=== PATIENT | female | born 1945 | race African-American/Black ===

== ENCOUNTER 2020-10-18 11:41 | Inpatient (IN) | payer MEDICARE ==
[~2020-10-18] VITALS: Ht 167.6 cm; Wt 63.7 kg
[2020-10-18] VITALS (7 sets, daily range): BP systolic 102–124; BP diastolic 52–63
[2020-10-18] MEDS ORDERED: IV NORMAL SALINE 1000ML BAG 1,000 ML IV ONE (12:00)
--- NOTE | 2020-10-18 12:07 | PHYS DOC ---
General Adult EDM: Chief Complaint: OTHER COMPLAINTS HPI: HPI: 75-year-old female past medical history of breast cancer with bilateral mastectomy in remission since 2018 (no chem/rads, on prolia), presents to the ED brought in by EMS from Dr. Brady's office with concern for hypotension and irregular heart rate, unable to obtain EKG. Patient with no prior history of atrial fibrillation and has no active chest pain, palpitations, dizziness, weakness, lightheadedness or feeling as if she is going to faint. Patient reports she presented to Dr. Brady's office with complaints of diffuse upper and lower back "cramps," only relieved with certain positions. States she took 1 tablet of Tylenol 650 mg with no relief. States her cramps have been constant but intermittent for the past month. Denies any recent illness/uri. No history of Covid or GI losses with vomiting or diarrhea. Reports chronic history of anemia but no history of blood transfusions. Is adamant against receiving any blood transfusions due to fear of getting Covid. Does have a history of iron infusions. Review of Systems: Review of Systems: Constitutional: Denies fever or chills. [] Eyes: Denies change in visual acuity. [] HENT: Denies nasal congestion or sore throat. [] Respiratory: Denies cough or shortness of breath. [] Cardiovascular: Denies chest pain or edema. [] GI: Denies abdominal pain, nausea, vomiting, bloody stools or diarrhea. [] : Denies dysuria or hematuria Musculoskeletal: Denies back pain or joint pain. [] Integument: Denies rash or diaphoresis Neurologic: Denies headache, focal weakness or sensory changes. [] Endocrine: Denies polyuria or polydipsia. [] Lymphatic: Denies swollen glands. [] Psychiatric: Denies depression or anxiety. [] Heart Score: Risk Factors: Risk Factors: DM, Current or recent (<one month) smoker, HTN, HLP, family history of CAD, obesity. Risk Scores: Score 0 - 3: 2.5% MACE over next 6 weeks - Discharge Home Score 4 - 6: 20.3% MACE over next 6 weeks - Admit for Clinical Observation Score 7 - 10: 72.7% MACE over next 6 weeks - Early Invasive Strategies Allergies: Allergies: Allergies Coded Allergies Type Severity Reaction Last Updated Verified No Known Drug Allergies 07/08/17 No Physical Exam: PE: Constitutional: Well developed, well nourished, no acute distress, non-toxic appearance. HENT: Normocephalic, atraumatic, Eyes: EOMI, conjunctiva normal, no discharge. Neck: Normal range of motion, supple, Cardiovascular: S1/2 present, irregular rhythm, 169/80s Lungs & Thorax: Speaking in full sentences, bilateral equal chest rise, no tachypnea or increased work of breathing Abdomen: soft, no tenderness, Skin: Warm, dry, no erythema, no rash. [] Back: cannot reproduce specific areas of muscle spasms, patient with no midline back pain or flank tenderness Extremities: No tenderness, no cyanosis, no edema Neurologic: Alert and oriented X 3, normal motor function, normal sensory function, no focal deficits noted. [] Psychologic: Affect normal, judgement normal, mood normal. [] EKG: EKG: Concern for atrial fibrillation RVR at 153 bpm, no axis deviation, unremarkable intervals, not appreciate any T wave inversions, no ST elevations or ST depressions-patient with no active chest pain/palpitations Repeat EKG sinus rhythm 86 bpm, left axis deviation, IL 200, no T wave inversions, no ST elevations or ST depressions Radiology/Procedures: Radiology/Procedures: Signed PATIENT: ANA ROCHA ACCOUNT: [id number] : 1945 LOCATION: ER AGE: 75 SEX: F EXAM STATUS: PRE ER ORD. PHYSICIAN: NAFISA LUNA DO REASON: muscle spasms PROCEDURE: PORTABLE CHEST 1V INDICATION: Reason: muscle spasms / Spl. Instructions: / History: COMPARISON: None. FINDINGS: Single view of chest obtained. Linear opacity at the right lower lung. Mild interstitial prominence. Cardiac mediastinal silhouette is upper limits of normal. Hypoexpanded exam. Degenerative changes shoulders. IMPRESSION: * Linear opacity right lower lung could be from scarring or atelectasis. * Mild interstitial prominence bilaterally. Causes such as mild pulmonary vascular congestion or interstitial infiltrate are within the differential. Electronically signed by: Garry Miles MD (10/18/2020 12:22 PM) [id number] DICTATED and SIGNED BY: GARRY MILES MD DATE: 10/18/20 [id number] 0 Course & Med Decision Making: Course & Med Decision Making Pertinent Labs and Imaging studies reviewed. (See chart for details) Concern for new onset proximal atrial fibrillation that resolved after 20 mg of diltiazem. Repeat EKG converted to sinus rhythm. Patient also with significant normocytic anemia, leukocytosis, and thrombocytosis-no prior labs for baseline comparison.. Patient refusing blood transfusion in ED. Is pending a repeat CBC and u/a to assess for infection. Patient very well-appearing with no nuchal mentioning of meningismus. X-ray with no infiltrate. I left a voicemail with Dr. RODGER Plascencia' nurse practitioner but have not heard back. Will admit for further medical management, accepted by Dr. Yeh. Hematology and cardiology consultations placed. Patient stable at time of admission and agrees with this plan. I have spoken with the patient and/or caregivers. I have explained the patient' s condition, diagnosis and treatment plan based on the information available to me at this time. I have answered the patient's and/or caregivers questions and answered any concerns. The patient and/or caregivers have as good an understanding of the patient's diagnosis, condition and treatment plan as can be expected at this point. The patient has been stabilized within the capability of the emergency department. The patient will be transported for further care and management or will be moved to an observation or inpatient service. I have communicated with the staff or medical practitioner taking over this patient's care. May Disclaimer: [place] Disclaimer: This electronic medical record was generated, in whole or in part, using a voice recognition dictation system. Departure Departure Impression: Primary Impression: Paroxysmal A-fib Additional Impressions: Normocytic anemia Thrombocytosis Leukocytosis Renal insufficiency Disposition: ADMITTED INPT THIS HOSP Admitting Physician: DEWAYNE (Dr. Yeh) Referrals: Umair BRADY MD (PCP) NAFISA LUNA DO Oct 18, 2020 12:07
[2020-10-18 12:13] LABS: BASO # 0.1 x10^3/uL (0.0-0.2); BASO % 0 % (0-3); EOS % 0 % (0-3); LYMPH # 0.9 x10^3/uL (1.0-4.8); LYMPH % 5 % (24-48); MEAN CORPUSCULAR HEMOGLOBIN 29 pg (25-35); MEAN CORPUSCULAR HGB CONC 33 g/dL (31-37); MEAN CORPUSCULAR VOLUME 87 fL (79-100); MONO # 1.4 x10^3/uL (0.0-1.1); MONO % 8 % (0-9); NEUT # 15.5 x10^3/uL (1.8-7.7); NEUT % 86 % (31-73); RED BLOOD COUNT 2.33 x10^6/uL (3.50-5.40); RED CELL DISTRIBUTION WIDTH 15.2 % (11.5-14.5); WHITE BLOOD COUNT 17.9 x10^3/uL (4.0-11.0)
[2020-10-18 12:21] LABS: HEMATOCRIT 20.2 % (36.0-47.0); HEMOGLOBIN 6.7 g/dL (12.0-15.5)
[2020-10-18 12:22] LABS: PLATELET COUNT 920 x10^3/uL (140-400)
[2020-10-18 12:24] LABS: CALCIUM 11.1 mg/dL (8.5-10.1); CREATININE 1.6 mg/dL (0.6-1.0); POTASSIUM 3.8 mmol/L (3.5-5.1)
--- NOTE | 2020-10-18 12:24 | RAD ---
INDICATION: Reason: muscle spasms / Spl. Instructions: / History: COMPARISON: None. FINDINGS: Single view of chest obtained. Linear opacity at the right lower lung. Mild interstitial prominence. Cardiac mediastinal silhouette is upper limits of normal. Hypoexpanded exam. Degenerative changes shoulders. IMPRESSION: * Linear opacity right lower lung could be from scarring or atelectasis. * Mild interstitial prominence bilaterally. Causes such as mild pulmonary vascular congestion or int erstitial infiltrate are within the differential. Electronically signed by: Garry Gayle MD (10/18/2020 12:22 PM) [id number]
[2020-10-18 12:33] LABS: ALBUMIN 2.1 g/dL (3.4-5.0); ALBUMIN/GLOBULIN RATIO 0.4 (1.0-1.7); MAGNESIUM 1.1 mg/dL (1.8-2.4); TOTAL BILIRUBIN 0.6 mg/dL (0.2-1.0)
[2020-10-18 13:00] LABS: % BANDS 8 % (0-9); % LYMPHS 4 % (24-48); % MONOS 8 % (0-10); % MYELOS 1 % (0-0); % SEGS 79 % (35-66)
[2020-10-18 13:01] LABS: ANISOCYTOSIS SLIGHT; PLT ESTIMATE INCREASED (ADEQUATE); POLYCHROMASIA SLIGHT; TOXIC GRANULATION SLIGHT
[2020-10-18] MEDS ORDERED: fentaNYL PF VIAL 100 MCG/2 ML VIAL IV PRN (14:00)
[2020-10-18] MEDS ORDERED: ONDANSETRON PF 4 MG/2 ML VIAL. IV PRN ×2 (14:00→14:45)
[2020-10-18 14:16] LABS: BASO # 0.1 x10^3/uL (0.0-0.2); BASO % 0 % (0-3); EOS % 0 % (0-3); LYMPH # 0.8 x10^3/uL (1.0-4.8); LYMPH % 5 % (24-48); MEAN CORPUSCULAR HEMOGLOBIN 28 pg (25-35); MEAN CORPUSCULAR HGB CONC 33 g/dL (31-37); MEAN CORPUSCULAR VOLUME 87 fL (79-100); MONO # 1.1 x10^3/uL (0.0-1.1); MONO % 7 % (0-9); NEUT # 14.2 x10^3/uL (1.8-7.7); NEUT % 88 % (31-73); PLATELET COUNT 759 x10^3/uL (140-400); RED CELL DISTRIBUTION WIDTH 15.4 % (11.5-14.5); WHITE BLOOD COUNT 16.1 x10^3/uL (4.0-11.0)
[2020-10-18 14:24] LABS: HEMATOCRIT 17.3 % (36.0-47.0); HEMOGLOBIN 5.7 g/dL (12.0-15.5)
--- NOTE | 2020-10-18 14:31 | PDOC1 ---
History and Physical Date of Admission Date of Admission DATE: 10/18/20 TIME: 14:29 Identification/Chief Complaint Chief Complaint DICTATED, SUPPLEMENT DATA Current Problem List Problem List Problems Medical Problems: (1) Leukocytosis Status: Acute (2) Normocytic anemia Status: Acute (3) Paroxysmal A-fib Status: Acute (4) Renal insufficiency Status: Acute (5) Thrombocytosis Status: Acute Current Medications Current Medications Current Medications Diltiazem HCl (Cardizem Iv Push) 20 mg 1X ONCE IVP Last administered on 10/18/20at 12:16; Start 10/18/20 at 12:15; Stop 10/18/20 at 12:16; Status DC Sodium Chloride 1,000 ml @ 1,000 mls/hr 1X ONCE IV Last administered on 10/18/20at 12:16; Start 10/18/20 at 12:00; Stop 10/18/20 at 12:59; Status DC Ondansetron HCl (Zofran) 4 mg PRN Q8HRS PRN IV NAUSEA/VOMITING; Start 10/18/20 at 14:00; Stop 10/19/20 at 13:59 Fentanyl Citrate (Fentanyl 2ml Vial) 50 mcg PRN Q1HR PRN IV PAIN; Start 10/18/20 at 14:00; Stop 10/19/20 at 13:59 Acetaminophen (Tylenol) 650 mg PRN Q4HRS PRN PO FEVER > 100.3'F; Start 10/18/20 at 14:00; Stop 10/19/20 at 13:59 Allergies Allergies: Coded Allergies: No Known Drug Allergies (Unverified , 07/08/17) Vitals Vitals Vital Signs Date Time Temp Pulse Resp B/P (MAP) Pulse Ox O2 Delivery O2 Flow Rate FiO2 10/18/20 12:16 109 162/56 10/18/20 11:55 16 100 Room Air Labs Labs Laboratory Tests Test 10/18/20 12:01 10/18/20 14:05 White Blood Count 17.9 x10^3/uL (4.0-11.0) 16.1 x10^3/uL (4.0-11.0) Red Blood Count 2.33 x10^6/uL (3.50-5.40) 2.00 x10^6/uL (3.50-5.40) Hemoglobin 6.7 g/dL (12.0-15.5) 5.7 g/dL (12.0-15.5) Hematocrit 20.2 % (36.0-47.0) 17.3 % (36.0-47.0) Mean Corpuscular Volume 87 fL (79-100) 87 fL (79-100) Mean Corpuscular Hemoglobin 29 pg (25-35) 28 pg (25-35) Mean Corpuscular Hemoglobin Concent 33 g/dL (31-37) 33 g/dL (31-37) Red Cell Distribution Width 15.2 % (11.5-14.5) 15.4 % (11.5-14.5) Platelet Count 920 x10^3/uL (140-400) 759 x10^3/uL (140-400) Neutrophils (%) (Auto) 86 % (31-73) 88 % (31-73) Lymphocytes (%) (Auto) 5 % (24-48) 5 % (24-48) Monocytes (%) (Auto) 8 % (0-9) 7 % (0-9) Eosinophils (%) (Auto) 0 % (0-3) 0 % (0-3) Basophils (%) (Auto) 0 % (0-3) 0 % (0-3) Neutrophils # (Auto) 15.5 x10^3/uL (1.8-7.7) 14.2 x10^3/uL (1.8-7.7) Lymphocytes # (Auto) 0.9 x10^3/uL (1.0-4.8) 0.8 x10^3/uL (1.0-4.8) Monocytes # (Auto) 1.4 x10^3/uL (0.0-1.1) 1.1 x10^3/uL (0.0-1.1) Eosinophils # (Auto) 0.0 x10^3/uL (0.0-0.7) 0.0 x10^3/uL (0.0-0.7) Basophils # (Auto) 0.1 x10^3/uL (0.0-0.2) 0.1 x10^3/uL (0.0-0.2) Segmented Neutrophils % 79 % (35-66) Band Neutrophils % 8 % (0-9) Lymphocytes % 4 % (24-48) Monocytes % 8 % (0-10) Myelocytes % 1 % (0-0) Toxic Granulation Slight Platelet Estimate Increased (ADEQUATE) Polychromasia Slight Anisocytosis Slight Sodium Level 124 mmol/L (136-145) Potassium Level 3.8 mmol/L (3.5-5.1) Chloride Level 86 mmol/L (98-107) Carbon Dioxide Level 28 mmol/L (21-32) Anion Gap 10 (6-14) Blood Urea Nitrogen 18 mg/dL (7-20) Creatinine 1.6 mg/dL (0.6-1.0) Estimated GFR (Cockcroft-Gault) 38.0 BUN/Creatinine Ratio 11 (6-20) Glucose Level 273 mg/dL (70-99) Calcium Level 11.1 mg/dL (8.5-10.1) Phosphorus Level 3.9 mg/dL (2.6-4.7) Magnesium Level 1.1 mg/dL (1.8-2.4) Total Bilirubin 0.6 mg/dL (0.2-1.0) Aspartate Amino Transf (AST/SGOT) 23 U/L (15-37) Alanine Aminotransferase (ALT/SGPT) 14 U/L (14-59) Alkaline Phosphatase 111 U/L (46-116) Troponin I Quantitative < 0.017 ng/mL (0.000-0.055) YW-Von-B-Type Natriuretic Peptide 545 pg/mL (0-449) Total Protein 8.0 g/dL (6.4-8.2) Albumin 2.1 g/dL (3.4-5.0) Albumin/Globulin Ratio 0.4 (1.0-1.7) Lipase 50 U/L (73-393) Thyroid Stimulating Hormone (TSH) 0.662 uIU/mL (0.358-3.74) Laboratory Tests Test 10/18/20 12:01 10/18/20 14:05 White Blood Count 17.9 x10^3/uL (4.0-11.0) 16.1 x10^3/uL (4.0-11.0) Red Blood Count 2.33 x10^6/uL (3.50-5.40) 2.00 x10^6/uL (3.50-5.40) Hemoglobin 6.7 g/dL (12.0-15.5) 5.7 g/dL (12.0-15.5) Hematocrit 20.2 % (36.0-47.0) 17.3 % (36.0-47.0) Mean Corpuscular Volume 87 fL (79-100) 87 fL (79-100) Mean Corpuscular Hemoglobin 29 pg (25-35) 28 pg (25-35) Mean Corpuscular Hemoglobin Concent 33 g/dL (31-37) 33 g/dL (31-37) Red Cell Distribution Width 15.2 % (11.5-14.5) 15.4 % (11.5-14.5) Platelet Count 920 x10^3/uL (140-400) 759 x10^3/uL (140-400) Neutrophils (%) (Auto) 86 % (31-73) 88 % (31-73) Lymphocytes (%) (Auto) 5 % (24-48) 5 % (24-48) Monocytes (%) (Auto) 8 % (0-9) 7 % (0-9) Eosinophils (%) (Auto) 0 % (0-3) 0 % (0-3) Basophils (%) (Auto) 0 % (0-3) 0 % (0-3) Neutrophils # (Auto) 15.5 x10^3/uL (1.8-7.7) 14.2 x10^3/uL (1.8-7.7) Lymphocytes # (Auto) 0.9 x10^3/uL (1.0-4.8) 0.8 x10^3/uL (1.0-4.8) Monocytes # (Auto) 1.4 x10^3/uL (0.0-1.1) 1.1 x10^3/uL (0.0-1.1) Eosinophils # (Auto) 0.0 x10^3/uL (0.0-0.7) 0.0 x10^3/uL (0.0-0.7) Basophils # (Auto) 0.1 x10^3/uL (0.0-0.2) 0.1 x10^3/uL (0.0-0.2) Segmented Neutrophils % 79 % (35-66) Band Neutrophils % 8 % (0-9) Lymphocytes % 4 % (24-48) Monocytes % 8 % (0-10) Myelocytes % 1 % (0-0) Toxic Granulation Slight Platelet Estimate Increased (ADEQUATE) Polychromasia Slight Anisocytosis Slight Sodium Level 124 mmol/L (136-145) Potassium Level 3.8 mmol/L (3.5-5.1) Chloride Level 86 mmol/L (98-107) Carbon Dioxide Level 28 mmol/L (21-32) Anion Gap 10 (6-14) Blood Urea Nitrogen 18 mg/dL (7-20) Creatinine 1.6 mg/dL (0.6-1.0) Estimated GFR (Cockcroft-Gault) 38.0 BUN/Creatinine Ratio 11 (6-20) Glucose Level 273 mg/dL (70-99) Calcium Level 11.1 mg/dL (8.5-10.1) Phosphorus Level 3.9 mg/dL (2.6-4.7) Magnesium Level 1.1 mg/dL (1.8-2.4) Total Bilirubin 0.6 mg/dL (0.2-1.0) Aspartate Amino Transf (AST/SGOT) 23 U/L (15-37) Alanine Aminotransferase (ALT/SGPT) 14 U/L (14-59) Alkaline Phosphatase 111 U/L (46-116) Troponin I Quantitative < 0.017 ng/mL (0.000-0.055) GE-Gsh-G-Type Natriuretic Peptide 545 pg/mL (0-449) Total Protein 8.0 g/dL (6.4-8.2) Albumin 2.1 g/dL (3.4-5.0) Albumin/Globulin Ratio 0.4 (1.0-1.7) Lipase 50 U/L (73-393) Thyroid Stimulating Hormone (TSH) 0.662 uIU/mL (0.358-3.74) VTE Prophylaxis Ordered VTE Prophylaxis Devices: Yes VTE Pharmacological Prophylaxi: Contraindicated Assessment/Plan Assessment/Plan Impression: Paroxysmal A-fib WITH RVR, NEW ONSET POA PROFOUND normocytic anemia mild pulmonary vascular congestion or interstitial infiltrate CXR 1-29 Normocytic anemia Thrombocytosis Leukocytosis Renal insufficiency breast cancer with bilateral mastectomy in remission since 2018 (no chem/rads, on prolia), ADMITTED HEMATOLOGY CONSULT CARDIOLOGY CONSULT tsh, free t4 GI CONSULT SCD;S IV PEPSID 20MG BID IV IRON, PT REFUSES TRANFSUSION TODAY DICTATED Justifications for Admission Other Justification COSME KENNY MD Oct 18, 2020 14:31
[2020-10-18] MEDS ORDERED: ACETAMINOPHEN 650 MG SUPP.RECT. PR PRN (14:45)
[2020-10-18] MEDS ORDERED: guaiFENesin ORAL 200 MG/10 ML LIQUID. PO PRN (14:45)
[2020-10-18] MEDS ORDERED: 0.9 % SODIUM CHLORIDE 10 ML DISP.SYRIN. IV PRN (14:45)
[2020-10-18] MEDS ORDERED: SODIUM PHOSPHATES 19/7GM 133 ML ENEMA. PR PRN (14:45)
[2020-10-18] MEDS ORDERED: ALBUTEROL SULFATE 2.5 MG/3 ML NEBU. NEB PRN (14:45)
[2020-10-18] MEDS ORDERED: LORazepam 0.5 MG TABLET PO PRN (14:45)
[2020-10-18] MEDS ORDERED: DOCUSATE SODIUM 100 MG CAPSULE. PO PRN (14:45)
[2020-10-18] MEDS ORDERED: IRON SUCROSE COMPLEX 200 MG in IV NORMAL SALINE 100ML 100 ML IV ONE (14:45)
[2020-10-18 15:21] LABS: BASO % 0 % (0-3); EOS % 0 % (0-3); LYMPH # 0.9 x10^3/uL (1.0-4.8); LYMPH % 5 % (24-48); MEAN CORPUSCULAR HEMOGLOBIN 29 pg (25-35); MEAN CORPUSCULAR HGB CONC 34 g/dL (31-37); MEAN CORPUSCULAR VOLUME 86 fL (79-100); MONO # 1.2 x10^3/uL (0.0-1.1); MONO % 7 % (0-9); NEUT # 14.3 x10^3/uL (1.8-7.7); NEUT % 87 % (31-73); PLATELET COUNT 762 x10^3/uL (140-400); RED BLOOD COUNT 2.01 x10^6/uL (3.50-5.40); RED CELL DISTRIBUTION WIDTH 14.8 % (11.5-14.5); WHITE BLOOD COUNT 16.4 x10^3/uL (4.0-11.0)
[2020-10-18 15:28] LABS: HEMOGLOBIN 5.8 g/dL (12.0-15.5); PROTHROMBIN TIME PATIENT 15.8 SEC (11.7-14.0)
[2020-10-18 15:29] LABS: HEMATOCRIT 17.3 % (36.0-47.0)
--- NOTE | 2020-10-18 16:18 | PDOC2 ---
GI CONSULT Date of Service: DATE: 10/18/20 TIME: 16:04 Reason For Consult: anemia HPI: HPI: 75 y/o female who saw Dr. Brady today for muscles spasms in her back. Sent to ER - notes indicate concern for hypotension and irregular heart rate - she says her heart rate and blood pressure were very high. Noted w/ Hgb 6.7 - checked an additional two times - now 5.8. Apparently initially refused transfusions but now agreeable. H/o anemia - addressed by oncology Dr. Agarwal in the past who she last saw in 04/2020. Past iron infusions which took the place of PO iron supplements which caused either constipation or diarrhea. She saw Dr. Starks in the office earlier this month re: anemia and scheduled colonoscopy for 09/30/20 but then rescheduled for 11/2020 because she just wasn't feeling very well. She reports a normal colonoscopy 6-8 years ago. Denies reflux/heartburn, dysphagia, n/v, abd pain, diarrhea, constipation, hematochezia, and melena. Appetite has been "on and off" and her and daughter "fuss." She might have lost some weight. No previous EGD. No GB, liver, pancreas, or PUD history. No NSAIDs. Has IV iron and H2 ankur ordered. PMH: PMH: breast cancer, anemia, hypothyroidism, ?DM, HTN bilateral mastectomy, hysterectomy, tonsillectomy, partial thyroidectomy (cold nodule), groin I&D FH: Family History: No pertinent hx (denies GI cancers), Other (sister had anemia) ROS: GEN: Denies fevers, chills, sweats HEENT: Denies blurred vision, sore throat CV: Denies chest pain RESP: Denies shortness of air, cough GI: Per HPI : Denies hematuria, dysuria ENDO: +weight loss NEURO: Denies confusion, dizziness MSK: +muscle spasms SKIN: Denies jaundice, pruritus Vitals: Vitals: Vital Signs Date Time Temp Pulse Resp B/P (MAP) Pulse Ox O2 Delivery O2 Flow Rate FiO2 10/18/20 15:47 61 141/97 (112) 96 Room Air 10/18/20 11:55 16 Labs: Labs: Laboratory Tests Test 10/18/20 12:01 10/18/20 14:05 10/18/20 15:04 White Blood Count 17.9 x10^3/uL (4.0-11.0) 16.1 x10^3/uL (4.0-11.0) 16.4 x10^3/uL (4.0-11.0) Red Blood Count 2.33 x10^6/uL (3.50-5.40) 1.97 x10^6/uL (3.50-5.70) 2.01 x10^6/uL (3.50-5.40) Hemoglobin 6.7 g/dL (12.0-15.5) 5.7 g/dL (12.0-15.5) 5.8 g/dL (12.0-15.5) Hematocrit 20.2 % (36.0-47.0) 17.3 % (36.0-47.0) 17.3 % (36.0-47.0) Mean Corpuscular Volume 87 fL (79-100) 87 fL (79-100) 86 fL (79-100) Mean Corpuscular Hemoglobin 29 pg (25-35) 28 pg (25-35) 29 pg (25-35) Mean Corpuscular Hemoglobin Concent 33 g/dL (31-37) 33 g/dL (31-37) 34 g/dL (31-37) Red Cell Distribution Width 15.2 % (11.5-14.5) 15.4 % (11.5-14.5) 14.8 % (11.5-14.5) Platelet Count 920 x10^3/uL (140-400) 759 x10^3/uL (140-400) 762 x10^3/uL (140-400) Neutrophils (%) (Auto) 86 % (31-73) 88 % (31-73) 87 % (31-73) Lymphocytes (%) (Auto) 5 % (24-48) 5 % (24-48) 5 % (24-48) Monocytes (%) (Auto) 8 % (0-9) 7 % (0-9) 7 % (0-9) Eosinophils (%) (Auto) 0 % (0-3) 0 % (0-3) 0 % (0-3) Basophils (%) (Auto) 0 % (0-3) 0 % (0-3) 0 % (0-3) Neutrophils # (Auto) 15.5 x10^3/uL (1.8-7.7) 14.2 x10^3/uL (1.8-7.7) 14.3 x10^3/uL (1.8-7.7) Lymphocytes # (Auto) 0.9 x10^3/uL (1.0-4.8) 0.8 x10^3/uL (1.0-4.8) 0.9 x10^3/uL (1.0-4.8) Monocytes # (Auto) 1.4 x10^3/uL (0.0-1.1) 1.1 x10^3/uL (0.0-1.1) 1.2 x10^3/uL (0.0-1.1) Eosinophils # (Auto) 0.0 x10^3/uL (0.0-0.7) 0.0 x10^3/uL (0.0-0.7) 0.0 x10^3/uL (0.0-0.7) Basophils # (Auto) 0.1 x10^3/uL (0.0-0.2) 0.1 x10^3/uL (0.0-0.2) 0.0 x10^3/uL (0.0-0.2) Segmented Neutrophils % 79 % (35-66) Band Neutrophils % 8 % (0-9) Lymphocytes % 4 % (24-48) Monocytes % 8 % (0-10) Myelocytes % 1 % (0-0) Toxic Granulation Slight Platelet Estimate Increased (ADEQUATE) Polychromasia Slight Anisocytosis Slight Sodium Level 124 mmol/L (136-145) Potassium Level 3.8 mmol/L (3.5-5.1) Chloride Level 86 mmol/L (98-107) Carbon Dioxide Level 28 mmol/L (21-32) Anion Gap 10 (6-14) Blood Urea Nitrogen 18 mg/dL (7-20) Creatinine 1.6 mg/dL (0.6-1.0) Estimated GFR (Cockcroft-Gault) 38.0 BUN/Creatinine Ratio 11 (6-20) Glucose Level 273 mg/dL (70-99) Calcium Level 11.1 mg/dL (8.5-10.1) Phosphorus Level 3.9 mg/dL (2.6-4.7) Magnesium Level 1.1 mg/dL (1.8-2.4) Total Bilirubin 0.6 mg/dL (0.2-1.0) Aspartate Amino Transf (AST/SGOT) 23 U/L (15-37) Alanine Aminotransferase (ALT/SGPT) 14 U/L (14-59) Alkaline Phosphatase 111 U/L (46-116) Troponin I Quantitative < 0.017 ng/mL (0.000-0.055) 0.021 ng/mL (0.000-0.055) WT-Ohv-C-Type Natriuretic Peptide 545 pg/mL (0-449) Total Protein 8.0 g/dL (6.4-8.2) Albumin 2.1 g/dL (3.4-5.0) Albumin/Globulin Ratio 0.4 (1.0-1.7) Lipase 50 U/L (73-393) Thyroid Stimulating Hormone (TSH) 0.662 uIU/mL (0.358-3.74) Absolute Reticulocyte Count 0.074 x10^6/uL (0.020-0.120) Percent Reticulocyte Count 3.8 % (0.5-2.3) Immature Reticulocyte Fraction 0.56 (0.20-0.60) Iron Level 31 ug/dL (50-170) Total Iron Binding Capacity 129 ug/dL (250-450) Iron Saturation 24 % (15-34) Prothrombin Time 15.8 SEC (11.7-14.0) Prothromb Time International Ratio 1.3 (0.8-1.1) Activated Partial Thromboplast Time 46 SEC (24-38) Allergies: Coded Allergies: No Known Drug Allergies (Unverified , 07/08/17) Medications: Current Medications Medications (Trade) Dose Ordered Sig/Mikey Route PRN Reason Start Time Stop Time Status Last Admin Dose Admin Diltiazem HCl (Cardizem Iv Push) 20 mg 1X ONCE IVP 10/18/20 12:15 10/18/20 12:16 DC 10/18/20 12:16 Sodium Chloride 1,000 ml @ 1,000 mls/hr 1X ONCE IV 10/18/20 12:00 10/18/20 12:59 DC 10/18/20 12:16 Imaging: Imaging: CXR IMPRESSION: * Linear opacity right lower lung could be from scarring or atelectasis. * Mild interstitial prominence bilaterally. Causes such as mild pulmonary vascular congestion or interstitial infiltrate are within the differential. PE: GEN: NAD HEENT: Atraumatic, PERRL LUNGS: clear anteriorly HEART: irregular ABD: NABS, S/ND/NT EXTREMITY: No edema SKIN: No rashes, no jaundice NEURO/PSYCH: A & O 3 A/P: A/P: Muscle spasms, tachycardia Chronic anemia - managed by hematology in the past, past iron infusions - iron studies now c/w ACD Leukocytosis, thrombocytosis, lymphopenia, hyponatremia, hypomagnesemia, ?EMILY CRC screen - reportedly normal <10 years ago H/o breast cancer, hypothyroidism -- Now agreeable to blood transfusion. Agree w/ acid-catering convention services manager, also note orders for CT A/P. Okay to advance diet as tolerated per GI. LIAT GONZALEZ Oct 18, 2020 16:18
[2020-10-18] MEDS: FAMOTIDINE 20 MG/2 ML VIAL IVP SCH (16:25)
[2020-10-18 16:54] LABS: D-DIMER 1.9 ug/mlFEU (0.00-0.50)
--- NOTE | 2020-10-18 17:01 | HP ---
ADMIT DATE: 10/18/2020 HISTORY OF PRESENT ILLNESS: This pleasant 75-year-old female with a known history of previous anemia, had been followed recently by Hematology here. She had been taking iron, but was told that she only needed to have her hemoglobin checked every 6 months. She had been seeing Dr. Alarcon, has not switched over to the new electronic news gathering camera person here. She has a known history of bilateral mastectomies since 2018 for breast cancer. She was seen in Dr. Brady's office today with hypotension and new onset atrial fibrillation. She denied any chest pain, denied weakness or dizziness. She complained of back cramping, took Tylenol without relief. When seen in the ER, where hemoglobin was only 6.7. She refused transfusion, but agreed IV infusion of iron . noted to have atrial fibrillation., rvr She was started on IV Cardizem and GI consult was placed. She was found to have leukocytosis and thrombocytosis. consult GI as well. REVIEW OF SYSTEMS: Denies chills or fever. Denies nasal congestion, cough, shortness of breath, chest pain, abdominal pain, blood in stools or diarrhea. Has had some back pain. Denies rash or diaphoresis. Denies headache, focal weakness, polyuria or polydipsia. Denies swollen glands. Denies depression or anxiety. Denies any exposure to known COVID. A 14-point review of systems otherwise negative. PHYSICAL EXAMINATION: GENERAL: This is an alert, oriented, pleasant female, in no acute distress. NECK: Supple. HEENT: Speech is normal. Throat and pharynx are clear. Extraocular muscles are intact. Muscles of mastication are symmetric bilateral. There is no facial asymmetry. CARDIOVASCULAR: Irregular rate and rhythm initially, now in sinus rhythm with a rate of 86. SKIN: Warm and dry. No evidence of paralumbar spasm or flank tenderness. EXTREMITIES: Without cyanosis or edema. NEUROLOGIC: She is alert and oriented. Normal motor function, no focal deficits, oriented to time and place. Normal judgment. Mood is normal affect. She is cheerful. LABORATORY DATA: White count 17.9, hemoglobin 6.7, platelets 920,000. Retic count is 3.8. Chemistry shows sodium of 124, creatinine 1.6, glucose 273, magnesium 1.1. Iron is 31, TIBC 129. Troponin 0.020, proBNP 545. Lipase is 50. Albumin is 2.1. ASSESSMENT: 1. This patient presents with new onset atrial fibrillation with history of paroxysmal atrial fibrillation, which is responding well to Cardizem. 2. Profound microcytic anemia. We will consult Hematology. 3. Mild pulmonary vascular congestion or interstitial infiltrate on today's chest x-ray. 4. Hyponatremia., hypovolemic, check serum osmolality, iv fluid support, trend, am bmp 5. Normocytic anemia. 6. Thrombocytosis. 7. Leukocytosis. 8. Renal insufficiency with acute renal injury. 9. Breast cancer with bilateral mastectomy, in remission since 2018. 10. hypomagnesemia, iv replace 3 gm now 11. severe protein-caloric malnutrition PLAN: Hematology consult, Cardiology consult. TSH and free T4. GI consult. SCDs. Avoid Lovenox, due to possible gi losses . IV Pepcid 20 mg b.i.d., IV iron. The patient refuses transfusion. We will monitor serum sodium, may need fluid restriction. We will check a serum osmolality and urine osmolality. Anticipate length of stay greater than 3 midnights due to profound anemia and hyponatremia and extensive consults needed. For current medications, please see medication reconciliation. Total time in the patient's exam, chart review was 77 minutes. Greater than 50% of time was spent with the patient exam, chart review and the patient care, coordination. PROGNOSIS: Guarded. COSME KENNY MD DR: FLOYD/mo JOB#: [id number] / [id number] DAVID
--- NOTE | 2020-10-18 17:15 | RAD ---
CT SCAN OF THE ABDOMEN AND PELVIS WITH IV CONTRAST. History: dropping h/h-PT WILL GO TO BED 211 Comparison:None. Procedure: Contiguous axial images of the abdomen and pelvis were performed after the administration of 75 cc o f Isovue 370 IV contrast. Oral contrast: No. Findings: Linear opacities in the lung bases are likely discoid atelectasis or scar. There are lytic lesions throughout the osseous structures. There is mild to moderate wall thickening of the left colon. Liver: Unremarkable Spleen: Unremarkable Pancreas: The pancreatic head appears full measuring 3.6 x 5.3 cm. There is a single stone in the fundus the gallbladder which otherwise appears normal. The appendix is not well seen. Adrenal Glands: Unremarkable Kidneys: Unremarkable There is no mass or lymphadenopathy. There is no free air. There is no free fluid. The urinary bladder appears normal. There is degenerative changes with multilevel central and neuroforaminal stenosis. Impression: 1. Innumerable lytic lesions throughout the visualized osseous structures. This is consistent with me tastatic cancer and could be metastatic breast cancer or metastatic lung cancer or multiple myeloma. 2. Linear opacities in the lung bases are likely discoid atelectasis or scar. 3. Mild to moderate wall thickening of the left colon just inflammatory or infectious colitis. There is no diverticulitis. There is no air in the wall to suggest ischemic colitis. 4. Fullness of the pancreatic head is suspicious for primary or metastatic cancer. Follow-up CT or MR I with contrast versus endoscopic ultrasound may be helpful. End impression PQRS Compliance Statement: One or more of the following individualized dose reduction techniques were utilized for this examinat ion: 1. Automated exposure control 2. Adjustment of the mA and/or kV according to patient size 3. Use of iterative reconstruction technique out Electronically signed by: Moshe Pendleton III, MD (10/18/2020 5:12 PM) [facility]
[2020-10-18] MEDS ORDERED: ANAS1TAB47 PO (18:01)
[2020-10-18] MEDS ORDERED: LEVO100C3 PO (18:01)
[2020-10-18 18:14] LABS: BILIRUBIN,URINE SMALL (NEG); CLARITY,URINE CLEAR; COLOR,URINE AMBER; NITRITE,URINE NEGATIVE (NEG); PROTEIN,URINE NEGATIVE (NEG-TRACE)
[2020-10-18 18:21] LABS: BARBITURATES NEG (NEG); BENZODIAZEPINES NEG (NEG); CANNABINOIDS NEG (NEG); COCAINE NEG (NEG); METHADONE NEG (NEG); OPIATES NEG (NEG); PHENCYCLIDINE NEG (NEG)
--- NOTE | 2020-10-18 18:21 | NUR ---
The patient, ANA ROCHA, 75 y/o, F admitted by COSME KENNY MD, admitted to monitor, in the 80's. Admission paperwork done and placed in chart. Iron will be started. Will continue to monitor.
[2020-10-18 18:22] LABS: AMPHETAMINE/METHAMPHETAMINE NEG (NEG)
[2020-10-18 18:30] LABS: AMORPHOUS SEDIMENT,UR PRESENT /HPF; BACTERIA,URINE MODERATE /HPF (0-FEW); RBC,URINE 0 /HPF (0-2)
--- NOTE | 2020-10-18 20:28 | EKG ---
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
[2020-10-18] MEDS: IV NORMAL SALINE 1000ML BAG 1,000 ML IV SCH (20:45)
[2020-10-18] MEDS ORDERED: MAGNESIUM SULFATE 3 GM in IV DEXTROSE 5% 100ML 100 ML IV ONE (20:45)
[2020-10-19] MEDS: ACETAMINOPHEN 325 MG TABLET. PO PRN ×2 (00:09→08:58)
[2020-10-19 00:12] LABS: HEMATOCRIT 24.4 % (36.0-47.0); HEMOGLOBIN 8.3 g/dL (12.0-15.5); RED BLOOD COUNT 2.86 x10^6/uL (3.50-5.40); WHITE BLOOD COUNT 15.7 x10^3/uL (4.0-11.0)
[2020-10-19 02:30] VITALS: BP 121/61
[2020-10-19 05:15] LABS: BASO # 0.1 x10^3/uL (0.0-0.2); BASO % 1 % (0-3); EOS # 0.2 x10^3/uL (0.0-0.7); EOS % 1 % (0-3); HEMATOCRIT 22.5 % (36.0-47.0); HEMOGLOBIN 7.9 g/dL (12.0-15.5); LYMPH # 1.5 x10^3/uL (1.0-4.8); LYMPH % 11 % (24-48); MEAN CORPUSCULAR HEMOGLOBIN 30 pg (25-35); MEAN CORPUSCULAR HGB CONC 35 g/dL (31-37); MEAN CORPUSCULAR VOLUME 86 fL (79-100); MONO # 1.5 x10^3/uL (0.0-1.1); MONO % 11 % (0-9); NEUT # 10.1 x10^3/uL (1.8-7.7); NEUT % 76 % (31-73); PLATELET COUNT 800 x10^3/uL (140-400); RED BLOOD COUNT 2.63 x10^6/uL (3.50-5.40); RED CELL DISTRIBUTION WIDTH 14.9 % (11.5-14.5); WHITE BLOOD COUNT 13.4 x10^3/uL (4.0-11.0)
[2020-10-19 05:52] LABS: ALBUMIN/GLOBULIN RATIO 0.4 (1.0-1.7); CALCIUM 10.3 mg/dL (8.5-10.1); GFR 65.4; POTASSIUM 3.2 mmol/L (3.5-5.1); TOTAL BILIRUBIN 0.8 mg/dL (0.2-1.0); TOTAL PROTEIN 7.4 g/dL (6.4-8.2)
[2020-10-19] MEDS: LEVOTHYROXINE 100 MCG TABLET PO SCH (06:27)
[2020-10-19 07:00] VITALS: BP 149/71
[2020-10-19] MEDS: FAMOTIDINE 20 MG/2 ML VIAL IVP SCH (09:00)
[2020-10-19] MEDS: ANASTROZOLE 1 MG TABLET PO SCH (09:05)
[2020-10-19] MEDS: IV NORMAL SALINE 1000ML BAG 1,000 ML IV SCH ×2 (10:05→23:25)
[2020-10-19] MEDS ORDERED: ELECTROLYTE (NON-ICU) PROTOCOL. MC PRN (10:45)
[2020-10-19 11:00] VITALS: BP 138/70
--- NOTE | 2020-10-19 11:48 | PDOC ---
[employer] PROGRESS NOTE Date of Service DOS: DATE: 10/19/20 TIME: 11:45 Chief Complaint Chief Complaint Paroxysmal A-fib WITH RVR, NEW ONSET POA PROFOUND normocytic anemia mild pulmonary vascular congestion or interstitial infiltrate CXR 10-18 Normocytic anemia Thrombocytosis Leukocytosis Renal insufficiency breast cancer with bilateral mastectomy in remission since 2018 (no chem/rads, on prolia), History of Present Illness History of Present Illness 10/19/2020 No acute events overnight. Heart rate stable on telemetry monitoring. No RVR events. Status post 2 units PRBC p hemoglobin stable at 7.9. Sodium improved to 127. Still hypokalemic. Pending hematology and cardiology recommendations. Will reevaluate on Wednesday with GI. There are multiple lytic lesions throughout bone structures seen on CT abdomen pelvis. Discussed with the patient that after her mastectomy she did not want to go through chemoradiation because she did not want to have any pain or suffering with treatments. She was comfortable living her life with more quality. This was addressed to the nurse that this be related to Dr. Coyle when he does his evaluation. Patient's chart, labs, images were reviewed and discussed with RN 75-year-old female with a known history of previous anemia, had been followed recently by Hematology here. She had been taking iron, but was told that she only needed to have her hemoglobin checked every 6 months. She had been seeing Dr. Alarcon, has not switched over to the new project management specialist here. She has a known history of bilateral mastectomies since 2018 for breast cancer. She was seen in Dr. Brady's office today with hypotension and new onset atrial fibrillation. She denied any chest pain, denied weakness or dizziness. She complained of back cramping, took Tylenol without relief. When seen in the ER, where hemoglobin was only 6.7. She refused transfusion, but agreed IV infusion of iron . noted to have atrial fibrillation., rvr She was started on IV Cardizem and GI consult was placed. She was found to have leukocytosis and thrombocytosis. consult GI as well. Vitals/I&O Vitals/I&O: Vital Signs Date Time Temp Pulse Resp B/P (MAP) Pulse Ox O2 Delivery O2 Flow Rate FiO2 10/19/20 08:00 Room Air 10/19/20 07:00 98.6 97 18 149/71 (97) 96 98.6 I & O 10/18/20 10/18/20 10/19/20 15:00 23:00 07:00 Intake Total 1000 ml 0 ml Output Total 75 ml 700 ml Balance 1000 ml -75 ml -700 ml Labs Labs: Laboratory Tests Test 10/18/20 12:01 10/18/20 14:05 10/18/20 15:04 10/18/20 16:53 White Blood Count 17.9 x10^3/uL (4.0-11.0) 16.1 x10^3/uL (4.0-11.0) 16.4 x10^3/uL (4.0-11.0) Red Blood Count 2.33 x10^6/uL (3.50-5.40) 1.97 x10^6/uL (3.50-5.70) 2.01 x10^6/uL (3.50-5.40) Hemoglobin 6.7 g/dL (12.0-15.5) 5.7 g/dL (12.0-15.5) 5.8 g/dL (12.0-15.5) Hematocrit 20.2 % (36.0-47.0) 17.3 % (36.0-47.0) 17.3 % (36.0-47.0) Mean Corpuscular Volume 87 fL (79-100) 87 fL (79-100) 86 fL (79-100) Mean Corpuscular Hemoglobin 29 pg (25-35) 28 pg (25-35) 29 pg (25-35) Mean Corpuscular Hemoglobin Concent 33 g/dL (31-37) 33 g/dL (31-37) 34 g/dL (31-37) Red Cell Distribution Width 15.2 % (11.5-14.5) 15.4 % (11.5-14.5) 14.8 % (11.5-14.5) Platelet Count 920 x10^3/uL (140-400) 759 x10^3/uL (140-400) 762 x10^3/uL (140-400) Neutrophils (%) (Auto) 86 % (31-73) 88 % (31-73) 87 % (31-73) Lymphocytes (%) (Auto) 5 % (24-48) 5 % (24-48) 5 % (24-48) Monocytes (%) (Auto) 8 % (0-9) 7 % (0-9) 7 % (0-9) Eosinophils (%) (Auto) 0 % (0-3) 0 % (0-3) 0 % (0-3) Basophils (%) (Auto) 0 % (0-3) 0 % (0-3) 0 % (0-3) Neutrophils # (Auto) 15.5 x10^3/uL (1.8-7.7) 14.2 x10^3/uL (1.8-7.7) 14.3 x10^3/uL (1.8-7.7) Lymphocytes # (Auto) 0.9 x10^3/uL (1.0-4.8) 0.8 x10^3/uL (1.0-4.8) 0.9 x10^3/uL (1.0-4.8) Monocytes # (Auto) 1.4 x10^3/uL (0.0-1.1) 1.1 x10^3/uL (0.0-1.1) 1.2 x10^3/uL (0.0-1.1) Eosinophils # (Auto) 0.0 x10^3/uL (0.0-0.7) 0.0 x10^3/uL (0.0-0.7) 0.0 x10^3/uL (0.0-0.7) Basophils # (Auto) 0.1 x10^3/uL (0.0-0.2) 0.1 x10^3/uL (0.0-0.2) 0.0 x10^3/uL (0.0-0.2) Segmented Neutrophils % 79 % (35-66) Band Neutrophils % 8 % (0-9) Lymphocytes % 4 % (24-48) Monocytes % 8 % (0-10) Myelocytes % 1 % (0-0) Toxic Granulation Slight Platelet Estimate Increased (ADEQUATE) Polychromasia Slight Anisocytosis Slight Sodium Level 124 mmol/L (136-145) Potassium Level 3.8 mmol/L (3.5-5.1) Chloride Level 86 mmol/L (98-107) Carbon Dioxide Level 28 mmol/L (21-32) Anion Gap 10 (6-14) Blood Urea Nitrogen 18 mg/dL (7-20) Creatinine 1.6 mg/dL (0.6-1.0) Estimated GFR (Cockcroft-Gault) 38.0 BUN/Creatinine Ratio 11 (6-20) Glucose Level 273 mg/dL (70-99) Calcium Level 11.1 mg/dL (8.5-10.1) Phosphorus Level 3.9 mg/dL (2.6-4.7) Magnesium Level 1.1 mg/dL (1.8-2.4) Total Bilirubin 0.6 mg/dL (0.2-1.0) Aspartate Amino Transf (AST/SGOT) 23 U/L (15-37) Alanine Aminotransferase (ALT/SGPT) 14 U/L (14-59) Alkaline Phosphatase 111 U/L (46-116) Troponin I Quantitative < 0.017 ng/mL (0.000-0.055) 0.021 ng/mL (0.000-0.055) HU-Hpb-U-Type Natriuretic Peptide 545 pg/mL (0-449) Total Protein 8.0 g/dL (6.4-8.2) Albumin 2.1 g/dL (3.4-5.0) Albumin/Globulin Ratio 0.4 (1.0-1.7) Lipase 50 U/L (73-393) Thyroid Stimulating Hormone (TSH) 0.662 uIU/mL (0.358-3.74) Absolute Reticulocyte Count 0.074 x10^6/uL (0.020-0.120) Percent Reticulocyte Count 3.8 % (0.5-2.3) Immature Reticulocyte Fraction 0.56 (0.20-0.60) Iron Level 31 ug/dL (50-170) Total Iron Binding Capacity 129 ug/dL (250-450) Iron Saturation 24 % (15-34) Ferritin 2291 ng/mL (8-252) Prothrombin Time 15.8 SEC (11.7-14.0) Prothromb Time International Ratio 1.3 (0.8-1.1) Activated Partial Thromboplast Time 46 SEC (24-38) Fibrinogen 697 mg/dL (200-440) D-Dimer (Lynda) 1.90 ug/mlFEU (0.00-0.50) Glucose (Fingerstick) 156 mg/dL (70-99) Test 10/18/20 18:00 10/18/20 20:45 10/18/20 23:30 10/19/20 04:00 Urine Collection Type Unknown Urine Color Nancy Urine Clarity Clear Urine pH 6.0 (<5.0-8.0) Urine Specific [place] 1.020 (1.000-1.030) Urine Protein Negative mg/dL (NEG-TRACE) Urine Glucose (UA) Negative mg/dL (NEG) Urine Ketones (Stick) Negative mg/dL (NEG) Urine Blood Negative (NEG) Urine Nitrite Negative (NEG) Urine Bilirubin Small (NEG) Urine Urobilinogen Dipstick 1.0 mg/dL (0.2 mg/dL) Urine Leukocyte Esterase Small (NEG) Urine RBC 0 /HPF (0-2) Urine WBC 11-20 /HPF (0-4) Urine Squamous Epithelial Cells Mod /LPF Urine Amorphous Sediment Present /HPF Urine Bacteria Moderate /HPF (0-FEW) Urine Mucus Slight /LPF Urine Opiates Screen Neg (NEG) Urine Methadone Screen Neg (NEG) Urine Barbiturates Neg (NEG) Urine Phencyclidine Screen Neg (NEG) Urine Amphetamine/Methamphetamine Neg (NEG) Urine Benzodiazepines Screen Neg (NEG) Urine Cocaine Screen Neg (NEG) Urine Cannabinoids Screen Neg (NEG) Urine Ethyl Alcohol Neg (NEG) Glucose (Fingerstick) 207 mg/dL (70-99) White Blood Count 15.7 x10^3/uL (4.0-11.0) 13.4 x10^3/uL (4.0-11.0) Red Blood Count 2.86 x10^6/uL (3.50-5.40) 2.63 x10^6/uL (3.50-5.40) Hemoglobin 8.3 g/dL (12.0-15.5) 7.9 g/dL (12.0-15.5) Hematocrit 24.4 % (36.0-47.0) 22.5 % (36.0-47.0) Mean Corpuscular Volume 85 fL (79-100) 86 fL (79-100) Mean Corpuscular Hemoglobin 29 pg (25-35) 30 pg (25-35) Mean Corpuscular Hemoglobin Concent 34 g/dL (31-37) 35 g/dL (31-37) Red Cell Distribution Width 15.0 % (11.5-14.5) 14.9 % (11.5-14.5) Platelet Count 832 x10^3/uL (140-400) 800 x10^3/uL (140-400) Troponin I Quantitative 0.041 ng/mL (0.000-0.055) Neutrophils (%) (Auto) 76 % (31-73) Lymphocytes (%) (Auto) 11 % (24-48) Monocytes (%) (Auto) 11 % (0-9) Eosinophils (%) (Auto) 1 % (0-3) Basophils (%) (Auto) 1 % (0-3) Neutrophils # (Auto) 10.1 x10^3/uL (1.8-7.7) Lymphocytes # (Auto) 1.5 x10^3/uL (1.0-4.8) Monocytes # (Auto) 1.5 x10^3/uL (0.0-1.1) Eosinophils # (Auto) 0.2 x10^3/uL (0.0-0.7) Basophils # (Auto) 0.1 x10^3/uL (0.0-0.2) Sodium Level 127 mmol/L (136-145) Potassium Level 3.2 mmol/L (3.5-5.1) Chloride Level 91 mmol/L (98-107) Carbon Dioxide Level 28 mmol/L (21-32) Anion Gap 8 (6-14) Blood Urea Nitrogen 16 mg/dL (7-20) Creatinine 1.0 mg/dL (0.6-1.0) Estimated GFR (Cockcroft-Gault) 65.4 BUN/Creatinine Ratio 16 (6-20) Glucose Level 96 mg/dL (70-99) Calcium Level 10.3 mg/dL (8.5-10.1) Total Bilirubin 0.8 mg/dL (0.2-1.0) Aspartate Amino Transf (AST/SGOT) 52 U/L (15-37) Alanine Aminotransferase (ALT/SGPT) 11 U/L (14-59) Alkaline Phosphatase 110 U/L (46-116) Total Protein 7.4 g/dL (6.4-8.2) Albumin 2.0 g/dL (3.4-5.0) Albumin/Globulin Ratio 0.4 (1.0-1.7) Test 10/19/20 07:31 Glucose (Fingerstick) 121 mg/dL (70-99) Assessment and Plan Assessmemt and Plan Problems Medical Problems: (1) Leukocytosis Status: Acute (2) Normocytic anemia Status: Acute (3) Paroxysmal A-fib Status: Acute (4) Renal insufficiency Status: Acute (5) Thrombocytosis Status: Acute Comment Review of Relevant I have reviewed the following items sami (where applicable) has been applied. Medications: Current Medications Medications (Trade) Dose Ordered Sig/Mikey Route PRN Reason Start Time Stop Time Status Last Admin Dose Admin Diltiazem HCl (Cardizem Iv Push) 20 mg 1X ONCE IVP 10/18/20 12:15 10/18/20 12:16 DC 10/18/20 12:16 Sodium Chloride 1,000 ml @ 1,000 mls/hr 1X ONCE IV 10/18/20 12:00 10/18/20 12:59 DC 10/18/20 12:16 Acetaminophen (Tylenol) 650 mg PRN Q4HRS PRN PO FEVER > 100.3'F 10/18/20 14:00 10/19/20 13:59 10/19/20 08:58 Iron Sucrose 200 mg/Sodium Chloride 110 ml @ 55 mls/hr 1X ONCE IV 10/18/20 14:45 10/18/20 16:44 DC 10/18/20 17:21 Famotidine (Pepcid Vial) 20 mg DAILY IVP 10/18/20 16:00 10/18/20 16:25 Anastrozole (Arimidex) 1 mg DAILY PO 10/19/20 09:00 10/19/20 09:05 Levothyroxine Sodium (Synthroid) 100 mcg DAILY06 PO 10/19/20 06:00 10/19/20 06:27 Magnesium Sulfate 3 gm/Dextrose 106 ml @ 35.333 mls/ hr 1X ONCE IV 10/18/20 20:45 10/18/20 23:44 DC 10/18/20 21:24 Justifications for Admission Other Justification PARRIS COTTON MD Oct 19, 2020 11:48
[2020-10-19] MEDS ORDERED: POTASSIUM CHLORIDE 20 MEQ TABLET.ER. PO ONE (12:30)
--- NOTE | 2020-10-19 13:02 | PDOC2 ---
CONSULT Date of Consult Date of Consult DATE: 10/19/20 TIME: 12:53 Reason for Consult Reason for Consult: Atrial fibrillation Referring Physician Referring Physician: Dr. Yeh Identification/Chief Complaint Chief Complaint Muscle spasms Source Source: Chart review, Patient History of Present Illness Reason for Visit: 75-year-old female without any previous cardiac history apparently was seen by Dr. Brady for muscle spasms in her back and was found to have irregular heartbeat. EKG showed atrial fibrillation and hence she was sent to ED for further evaluation. She received 20 mg of intravenous Cardizem bolus in ED with conversion to sinus rhythm. Patient denied any palpitations as such. She also denied any chest pain, orthopnea/PND or syncope. Past Medical History Past Medical History Anemia, followed by hematology team Hypothyroidism Past Surgical History Past Surgical History Breast cancer s/p bilateral mastectomy Hysterectomy Tonsillectomy Partial thyroidectomy Family History Family History Patient denied any family history of premature coronary disease Social History Social History Patient is a non-smoker and nondrinker Current Problem List Problem List Problems Medical Problems: (1) Leukocytosis Status: Acute (2) Normocytic anemia Status: Acute (3) Paroxysmal A-fib Status: Acute (4) Renal insufficiency Status: Acute (5) Thrombocytosis Status: Acute Current Medications Current Medications Current Medications Diltiazem HCl (Cardizem Iv Push) 20 mg 1X ONCE IVP Last administered on 10/18/20at 12:16; Start 10/18/20 at 12:15; Stop 10/18/20 at 12:16; Status DC Sodium Chloride 1,000 ml @ 1,000 mls/hr 1X ONCE IV Last administered on 10/18/20at 12:16; Start 10/18/20 at 12:00; Stop 10/18/20 at 12:59; Status DC Ondansetron HCl (Zofran) 4 mg PRN Q8HRS PRN IV NAUSEA/VOMITING; Start 10/18/20 at 14:00; Stop 10/19/20 at 13:59 Fentanyl Citrate (Fentanyl 2ml Vial) 50 mcg PRN Q1HR PRN IV PAIN; Start 10/18/20 at 14:00; Stop 10/19/20 at 13:59 Acetaminophen (Tylenol) 650 mg PRN Q4HRS PRN PO FEVER > 100.3'F Last administered on 10/19/20at 08:58; Start 10/18/20 at 14:00; Stop 10/19/20 at 13:59 Sodium Chloride (Normal Saline Flush) 3 ml QSHIFT PRN IV AFTER MEDS AND BLOOD DRAWS; Start 10/18/20 at 14:45 Ondansetron HCl (Zofran) 4 mg PRN Q4HRS PRN IV NAUSEA/VOMITING; Start 10/18/20 at 14:45 Acetaminophen (Tylenol) 650 mg PRN Q4HRS PRN PO TEMP OVER 100.4F OR MILD PAIN; Start 10/18/20 at 14:45 Acetaminophen (Tylenol Supp) 650 mg PRN Q4HRS PRN MA TEMP OVER 100.4F OR MILD PAIN; Start 10/18/20 at 14:45 Sodium Monofluorophosphate (Fleet Adult) 133 ml PRN DAILY PRN MA CONSTIPATION; Start 10/18/20 at 14:45 Docusate Sodium (Colace) 100 mg PRN BID PRN PO HARD STOOLS; Start 10/18/20 at 14:45 Albuterol Sulfate (Ventolin Neb Soln) 2.5 mg PRN Q4HRS PRN NEB SHORTNESS OF BREATH; Start 10/18/20 at 14:45 Guaifenesin (Robitussin) 200 mg PRN Q4HRS PRN PO COUGH; Start 10/18/20 at 14:45 Lorazepam (Ativan) 0.5 mg PRN Q4HRS PRN PO ANXIETY / AGITATION; Start 10/18/20 at 14:45 Iron Sucrose 200 mg/Sodium Chloride 110 ml @ 55 mls/hr 1X ONCE IV Last administered on 10/18/20at 17:21; Start 10/18/20 at 14:45; Stop 10/18/20 at 16:44; Status DC Famotidine (Pepcid Vial) 20 mg DAILY IVP Last administered on 10/18/20at 16:25; Start 10/18/20 at 16:00 Anastrozole (Arimidex) 1 mg DAILY PO Last administered on 10/19/20at 09:05; Start 10/19/20 at 09:00 Levothyroxine Sodium (Synthroid) 100 mcg DAILY06 PO Last administered on 10/19/20at 06:27; Start 10/19/20 at 06:00 Magnesium Sulfate 3 gm/Dextrose 106 ml @ 35.333 mls/ hr 1X ONCE IV Last administered on 10/18/20at 21:24; Start 10/18/20 at 20:45; Stop 10/18/20 at 23:44; Status DC Sodium Chloride 1,000 ml @ 75 mls/hr [id number] IV ; Start 10/18/20 at 20:45 Info (Non-Icu Electrolyte Protocol) 1 ea CONT PRN PRN MC PER PROTOCOL; Start 10/19/20 at 10:45 Potassium Chloride (Klor-Con) 40 meq 1X ONCE PO ; Start 10/19/20 at 12:30; Stop 10/19/20 at 12:31; Status DC Active Scripts Active Reported Levothyroxine (Levothyroxine Sodium) 100 Mcg Capsule 100 Mcg PO DAILY Arimidex (Anastrozole) 1 Mg Tablet 1 Tab PO DAILY 30 Days Allergies Allergies: Coded Allergies: No Known Drug Allergies (Unverified , 07/08/17) ROS PSYCHOLOGICAL ROS: No: Hallucinations Eyes: No Loss of vision HEENT: No: Epistaxis Respiratory: No: Hemoptysis, Shortness of breath Cardiovascular: No Chest Pain Gastrointestinal: No Vomiting, No Diarrhea Genitourinary: No Hematuria Neurological: No Seizures Skin: No Rash Physical Exam General: Alert, Oriented X3 HEENT: Atraumatic, PERRLA Lungs: Clear to auscultation Heart: Regular rate Abdomen: Soft, No tenderness Extremities: No edema Neuro: Normal speech Psych/Mental Status: Mood NL Vitals VITALS Vital Signs Date Time Temp Pulse Resp B/P (MAP) Pulse Ox O2 Delivery O2 Flow Rate FiO2 10/19/20 11:00 98.5 93 18 138/70 (92) 96 Room Air 98.5 Labs Labs Laboratory Tests Test 10/18/20 12:01 10/18/20 14:05 10/18/20 15:04 10/18/20 16:53 White Blood Count 17.9 x10^3/uL (4.0-11.0) 16.1 x10^3/uL (4.0-11.0) 16.4 x10^3/uL (4.0-11.0) Red Blood Count 2.33 x10^6/uL (3.50-5.40) 1.97 x10^6/uL (3.50-5.70) 2.01 x10^6/uL (3.50-5.40) Hemoglobin 6.7 g/dL (12.0-15.5) 5.7 g/dL (12.0-15.5) 5.8 g/dL (12.0-15.5) Hematocrit 20.2 % (36.0-47.0) 17.3 % (36.0-47.0) 17.3 % (36.0-47.0) Mean Corpuscular Volume 87 fL (79-100) 87 fL (79-100) 86 fL (79-100) Mean Corpuscular Hemoglobin 29 pg (25-35) 28 pg (25-35) 29 pg (25-35) Mean Corpuscular Hemoglobin Concent 33 g/dL (31-37) 33 g/dL (31-37) 34 g/dL (31-37) Red Cell Distribution Width 15.2 % (11.5-14.5) 15.4 % (11.5-14.5) 14.8 % (11.5-14.5) Platelet Count 920 x10^3/uL (140-400) 759 x10^3/uL (140-400) 762 x10^3/uL (140-400) Neutrophils (%) (Auto) 86 % (31-73) 88 % (31-73) 87 % (31-73) Lymphocytes (%) (Auto) 5 % (24-48) 5 % (24-48) 5 % (24-48) Monocytes (%) (Auto) 8 % (0-9) 7 % (0-9) 7 % (0-9) Eosinophils (%) (Auto) 0 % (0-3) 0 % (0-3) 0 % (0-3) Basophils (%) (Auto) 0 % (0-3) 0 % (0-3) 0 % (0-3) Neutrophils # (Auto) 15.5 x10^3/uL (1.8-7.7) 14.2 x10^3/uL (1.8-7.7) 14.3 x10^3/uL (1.8-7.7) Lymphocytes # (Auto) 0.9 x10^3/uL (1.0-4.8) 0.8 x10^3/uL (1.0-4.8) 0.9 x10^3/uL (1.0-4.8) Monocytes # (Auto) 1.4 x10^3/uL (0.0-1.1) 1.1 x10^3/uL (0.0-1.1) 1.2 x10^3/uL (0.0-1.1) Eosinophils # (Auto) 0.0 x10^3/uL (0.0-0.7) 0.0 x10^3/uL (0.0-0.7) 0.0 x10^3/uL (0.0-0.7) Basophils # (Auto) 0.1 x10^3/uL (0.0-0.2) 0.1 x10^3/uL (0.0-0.2) 0.0 x10^3/uL (0.0-0.2) Segmented Neutrophils % 79 % (35-66) Band Neutrophils % 8 % (0-9) Lymphocytes % 4 % (24-48) Monocytes % 8 % (0-10) Myelocytes % 1 % (0-0) Toxic Granulation Slight Platelet Estimate Increased (ADEQUATE) Polychromasia Slight Anisocytosis Slight Sodium Level 124 mmol/L (136-145) Potassium Level 3.8 mmol/L (3.5-5.1) Chloride Level 86 mmol/L (98-107) Carbon Dioxide Level 28 mmol/L (21-32) Anion Gap 10 (6-14) Blood Urea Nitrogen 18 mg/dL (7-20) Creatinine 1.6 mg/dL (0.6-1.0) Estimated GFR (Cockcroft-Gault) 38.0 BUN/Creatinine Ratio 11 (6-20) Glucose Level 273 mg/dL (70-99) Calcium Level 11.1 mg/dL (8.5-10.1) Phosphorus Level 3.9 mg/dL (2.6-4.7) Magnesium Level 1.1 mg/dL (1.8-2.4) Total Bilirubin 0.6 mg/dL (0.2-1.0) Aspartate Amino Transf (AST/SGOT) 23 U/L (15-37) Alanine Aminotransferase (ALT/SGPT) 14 U/L (14-59) Alkaline Phosphatase 111 U/L (46-116) Troponin I Quantitative < 0.017 ng/mL (0.000-0.055) 0.021 ng/mL (0.000-0.055) NM-Ebh-T-Type Natriuretic Peptide 545 pg/mL (0-449) Total Protein 8.0 g/dL (6.4-8.2) Albumin 2.1 g/dL (3.4-5.0) Albumin/Globulin Ratio 0.4 (1.0-1.7) Lipase 50 U/L (73-393) Thyroid Stimulating Hormone (TSH) 0.662 uIU/mL (0.358-3.74) Absolute Reticulocyte Count 0.074 x10^6/uL (0.020-0.120) Percent Reticulocyte Count 3.8 % (0.5-2.3) Immature Reticulocyte Fraction 0.56 (0.20-0.60) Iron Level 31 ug/dL (50-170) Total Iron Binding Capacity 129 ug/dL (250-450) Iron Saturation 24 % (15-34) Ferritin 2291 ng/mL (8-252) Prothrombin Time 15.8 SEC (11.7-14.0) Prothromb Time International Ratio 1.3 (0.8-1.1) Activated Partial Thromboplast Time 46 SEC (24-38) Fibrinogen 697 mg/dL (200-440) D-Dimer (Lynda) 1.90 ug/mlFEU (0.00-0.50) Glucose (Fingerstick) 156 mg/dL (70-99) Test 10/18/20 18:00 10/18/20 20:45 10/18/20 23:30 10/19/20 04:00 Urine Collection Type Unknown Urine Color Nancy Urine Clarity Clear Urine pH 6.0 (<5.0-8.0) Urine Specific [place] 1.020 (1.000-1.030) Urine Protein Negative mg/dL (NEG-TRACE) Urine Glucose (UA) Negative mg/dL (NEG) Urine Ketones (Stick) Negative mg/dL (NEG) Urine Blood Negative (NEG) Urine Nitrite Negative (NEG) Urine Bilirubin Small (NEG) Urine Urobilinogen Dipstick 1.0 mg/dL (0.2 mg/dL) Urine Leukocyte Esterase Small (NEG) Urine RBC 0 /HPF (0-2) Urine WBC 11-20 /HPF (0-4) Urine Squamous Epithelial Cells Mod /LPF Urine Amorphous Sediment Present /HPF Urine Bacteria Moderate /HPF (0-FEW) Urine Mucus Slight /LPF Urine Opiates Screen Neg (NEG) Urine Methadone Screen Neg (NEG) Urine Barbiturates Neg (NEG) Urine Phencyclidine Screen Neg (NEG) Urine Amphetamine/Methamphetamine Neg (NEG) Urine Benzodiazepines Screen Neg (NEG) Urine Cocaine Screen Neg (NEG) Urine Cannabinoids Screen Neg (NEG) Urine Ethyl Alcohol Neg (NEG) Glucose (Fingerstick) 207 mg/dL (70-99) White Blood Count 15.7 x10^3/uL (4.0-11.0) 13.4 x10^3/uL (4.0-11.0) Red Blood Count 2.86 x10^6/uL (3.50-5.40) 2.63 x10^6/uL (3.50-5.40) Hemoglobin 8.3 g/dL (12.0-15.5) 7.9 g/dL (12.0-15.5) Hematocrit 24.4 % (36.0-47.0) 22.5 % (36.0-47.0) Mean Corpuscular Volume 85 fL (79-100) 86 fL (79-100) Mean Corpuscular Hemoglobin 29 pg (25-35) 30 pg (25-35) Mean Corpuscular Hemoglobin Concent 34 g/dL (31-37) 35 g/dL (31-37) Red Cell Distribution Width 15.0 % (11.5-14.5) 14.9 % (11.5-14.5) Platelet Count 832 x10^3/uL (140-400) 800 x10^3/uL (140-400) Troponin I Quantitative 0.041 ng/mL (0.000-0.055) Neutrophils (%) (Auto) 76 % (31-73) Lymphocytes (%) (Auto) 11 % (24-48) Monocytes (%) (Auto) 11 % (0-9) Eosinophils (%) (Auto) 1 % (0-3) Basophils (%) (Auto) 1 % (0-3) Neutrophils # (Auto) 10.1 x10^3/uL (1.8-7.7) Lymphocytes # (Auto) 1.5 x10^3/uL (1.0-4.8) Monocytes # (Auto) 1.5 x10^3/uL (0.0-1.1) Eosinophils # (Auto) 0.2 x10^3/uL (0.0-0.7) Basophils # (Auto) 0.1 x10^3/uL (0.0-0.2) Sodium Level 127 mmol/L (136-145) Potassium Level 3.2 mmol/L (3.5-5.1) Chloride Level 91 mmol/L (98-107) Carbon Dioxide Level 28 mmol/L (21-32) Anion Gap 8 (6-14) Blood Urea Nitrogen 16 mg/dL (7-20) Creatinine 1.0 mg/dL (0.6-1.0) Estimated GFR (Cockcroft-Gault) 65.4 BUN/Creatinine Ratio 16 (6-20) Glucose Level 96 mg/dL (70-99) Calcium Level 10.3 mg/dL (8.5-10.1) Total Bilirubin 0.8 mg/dL (0.2-1.0) Aspartate Amino Transf (AST/SGOT) 52 U/L (15-37) Alanine Aminotransferase (ALT/SGPT) 11 U/L (14-59) Alkaline Phosphatase 110 U/L (46-116) Total Protein 7.4 g/dL (6.4-8.2) Albumin 2.0 g/dL (3.4-5.0) Albumin/Globulin Ratio 0.4 (1.0-1.7) Test 10/19/20 07:31 10/19/20 12:05 Glucose (Fingerstick) 121 mg/dL (70-99) 131 mg/dL (70-99) Laboratory Tests Test 10/18/20 14:05 10/18/20 15:04 10/18/20 16:53 10/18/20 18:00 White Blood Count 16.1 x10^3/uL (4.0-11.0) 16.4 x10^3/uL (4.0-11.0) Red Blood Count 1.97 x10^6/uL (3.50-5.70) 2.01 x10^6/uL (3.50-5.40) Hemoglobin 5.7 g/dL (12.0-15.5) 5.8 g/dL (12.0-15.5) Hematocrit 17.3 % (36.0-47.0) 17.3 % (36.0-47.0) Mean Corpuscular Volume 87 fL (79-100) 86 fL (79-100) Mean Corpuscular Hemoglobin 28 pg (25-35) 29 pg (25-35) Mean Corpuscular Hemoglobin Concent 33 g/dL (31-37) 34 g/dL (31-37) Red Cell Distribution Width 15.4 % (11.5-14.5) 14.8 % (11.5-14.5) Platelet Count 759 x10^3/uL (140-400) 762 x10^3/uL (140-400) Neutrophils (%) (Auto) 88 % (31-73) 87 % (31-73) Lymphocytes (%) (Auto) 5 % (24-48) 5 % (24-48) Monocytes (%) (Auto) 7 % (0-9) 7 % (0-9) Eosinophils (%) (Auto) 0 % (0-3) 0 % (0-3) Basophils (%) (Auto) 0 % (0-3) 0 % (0-3) Neutrophils # (Auto) 14.2 x10^3/uL (1.8-7.7) 14.3 x10^3/uL (1.8-7.7) Lymphocytes # (Auto) 0.8 x10^3/uL (1.0-4.8) 0.9 x10^3/uL (1.0-4.8) Monocytes # (Auto) 1.1 x10^3/uL (0.0-1.1) 1.2 x10^3/uL (0.0-1.1) Eosinophils # (Auto) 0.0 x10^3/uL (0.0-0.7) 0.0 x10^3/uL (0.0-0.7) Basophils # (Auto) 0.1 x10^3/uL (0.0-0.2) 0.0 x10^3/uL (0.0-0.2) Absolute Reticulocyte Count 0.074 x10^6/uL (0.020-0.120) Percent Reticulocyte Count 3.8 % (0.5-2.3) Immature Reticulocyte Fraction 0.56 (0.20-0.60) Iron Level 31 ug/dL (50-170) Total Iron Binding Capacity 129 ug/dL (250-450) Iron Saturation 24 % (15-34) Ferritin 2291 ng/mL (8-252) Troponin I Quantitative 0.021 ng/mL (0.000-0.055) Prothrombin Time 15.8 SEC (11.7-14.0) Prothromb Time International Ratio 1.3 (0.8-1.1) Activated Partial Thromboplast Time 46 SEC (24-38) Fibrinogen 697 mg/dL (200-440) D-Dimer (Lynda) 1.90 ug/mlFEU (0.00-0.50) Glucose (Fingerstick) 156 mg/dL (70-99) Urine Collection Type Unknown Urine Color Nancy Urine Clarity Clear Urine pH 6.0 (<5.0-8.0) Urine Specific [place] 1.020 (1.000-1.030) Urine Protein Negative mg/dL (NEG-TRACE) Urine Glucose (UA) Negative mg/dL (NEG) Urine Ketones (Stick) Negative mg/dL (NEG) Urine Blood Negative (NEG) Urine Nitrite Negative (NEG) Urine Bilirubin Small (NEG) Urine Urobilinogen Dipstick 1.0 mg/dL (0.2 mg/dL) Urine Leukocyte Esterase Small (NEG) Urine RBC 0 /HPF (0-2) Urine WBC 11-20 /HPF (0-4) Urine Squamous Epithelial Cells Mod /LPF Urine Amorphous Sediment Present /HPF Urine Bacteria Moderate /HPF (0-FEW) Urine Mucus Slight /LPF Urine Opiates Screen Neg (NEG) Urine Methadone Screen Neg (NEG) Urine Barbiturates Neg (NEG) Urine Phencyclidine Screen Neg (NEG) Urine Amphetamine/Methamphetamine Neg (NEG) Urine Benzodiazepines Screen Neg (NEG) Urine Cocaine Screen Neg (NEG) Urine Cannabinoids Screen Neg (NEG) Urine Ethyl Alcohol Neg (NEG) Test 10/18/20 20:45 10/18/20 23:30 10/19/20 04:00 10/19/20 07:31 Glucose (Fingerstick) 207 mg/dL (70-99) 121 mg/dL (70-99) White Blood Count 15.7 x10^3/uL (4.0-11.0) 13.4 x10^3/uL (4.0-11.0) Red Blood Count 2.86 x10^6/uL (3.50-5.40) 2.63 x10^6/uL (3.50-5.40) Hemoglobin 8.3 g/dL (12.0-15.5) 7.9 g/dL (12.0-15.5) Hematocrit 24.4 % (36.0-47.0) 22.5 % (36.0-47.0) Mean Corpuscular Volume 85 fL (79-100) 86 fL (79-100) Mean Corpuscular Hemoglobin 29 pg (25-35) 30 pg (25-35) Mean Corpuscular Hemoglobin Concent 34 g/dL (31-37) 35 g/dL (31-37) Red Cell Distribution Width 15.0 % (11.5-14.5) 14.9 % (11.5-14.5) Platelet Count 832 x10^3/uL (140-400) 800 x10^3/uL (140-400) Troponin I Quantitative 0.041 ng/mL (0.000-0.055) Neutrophils (%) (Auto) 76 % (31-73) Lymphocytes (%) (Auto) 11 % (24-48) Monocytes (%) (Auto) 11 % (0-9) Eosinophils (%) (Auto) 1 % (0-3) Basophils (%) (Auto) 1 % (0-3) Neutrophils # (Auto) 10.1 x10^3/uL (1.8-7.7) Lymphocytes # (Auto) 1.5 x10^3/uL (1.0-4.8) Monocytes # (Auto) 1.5 x10^3/uL (0.0-1.1) Eosinophils # (Auto) 0.2 x10^3/uL (0.0-0.7) Basophils # (Auto) 0.1 x10^3/uL (0.0-0.2) Sodium Level 127 mmol/L (136-145) Potassium Level 3.2 mmol/L (3.5-5.1) Chloride Level 91 mmol/L (98-107) Carbon Dioxide Level 28 mmol/L (21-32) Anion Gap 8 (6-14) Blood Urea Nitrogen 16 mg/dL (7-20) Creatinine 1.0 mg/dL (0.6-1.0) Estimated GFR (Cockcroft-Gault) 65.4 BUN/Creatinine Ratio 16 (6-20) Glucose Level 96 mg/dL (70-99) Calcium Level 10.3 mg/dL (8.5-10.1) Total Bilirubin 0.8 mg/dL (0.2-1.0) Aspartate Amino Transf (AST/SGOT) 52 U/L (15-37) Alanine Aminotransferase (ALT/SGPT) 11 U/L (14-59) Alkaline Phosphatase 110 U/L (46-116) Total Protein 7.4 g/dL (6.4-8.2) Albumin 2.0 g/dL (3.4-5.0) Albumin/Globulin Ratio 0.4 (1.0-1.7) Test 10/19/20 12:05 Glucose (Fingerstick) 131 mg/dL (70-99) Assessment/Plan Assessment/Plan 1. Paroxysmal atrial fibrillation, presently back in sinus rhythm. Start aspirin 81 mg daily and metoprolol 25 mg twice daily. We will obtain 2D echocardiogram as an outpatient. We will also plan for outpatient event monitor recording to guide long-term anticoagulation/antiarrhythmic therapy 2. Hypothyroidism: On levothyroxine 3. Anemia: GI and hematology following Thank you for your consultation NATALYA SANCHEZ MD Oct 19, 2020 13:02
[2020-10-19] MEDS: ASPIRIN ENTERIC COATED 81 MG TABLET.DR. PO SCH (13:50)
[2020-10-19] MEDS: METOPROLOL TART IMMED RELEASE 25 MG TABLET. PO SCH ×2 (13:52→21:24)
[2020-10-19 15:00] VITALS: BP 133/65
[2020-10-19 19:40] VITALS: BP 131/48
[2020-10-19 22:55] VITALS: BP 130/80
[2020-10-20 03:30] VITALS: BP 132/67
[2020-10-20] MEDS: LEVOTHYROXINE 100 MCG TABLET PO SCH (06:26)
[2020-10-20 07:00] VITALS: BP 112/65
[2020-10-20] MEDS: ASPIRIN ENTERIC COATED 81 MG TABLET.DR. PO SCH (09:01)
[2020-10-20] MEDS: FAMOTIDINE 20 MG/2 ML VIAL IVP SCH (09:02)
[2020-10-20] MEDS: METOPROLOL TART IMMED RELEASE 25 MG TABLET. PO SCH ×2 (09:02→21:35)
[2020-10-20] MEDS: ANASTROZOLE 1 MG TABLET PO SCH (09:08)
--- NOTE | 2020-10-20 10:41 | PDOC ---
PROGRESS NOTES Date of Service: DATE: 10/20/20 TIME: 10:41 Subjective Subjective Feeling great without any new complaints. Objective Objective Vital Signs Date Time Temp Pulse Resp B/P (MAP) Pulse Ox O2 Delivery O2 Flow Rate FiO2 10/20/20 09:02 85 112/65 10/20/20 08:00 Room Air 10/20/20 07:00 98.9 18 93 98.9 Intake and Output 10/20/20 07:00 Intake Total 1115 ml Output Total 500 ml Balance 615 ml Intake Oral 1115 ml Output Urine Total 500 ml # Voids 3 # Bowel Movements 1 Physical Exam Abdomen: Soft, No tenderness Heart: Regular rate Extremities: No edema General: Alert, Oriented X3 HEENT: Atraumatic, PERRLA Lungs: Clear to auscultation Neuro: Normal speech Psych/Mental Status: Mood NL Assessment Assessment 1. Paroxysmal atrial fibrillation, presently back in sinus rhythm. Continue current medications including metoprolol and aspirin. We will obtain 2D echocardiogram as an outpatient. We will also plan for outpatient event monitor recording to guide long-term anticoagulation/antiarrhythmic therapy 2. Hypothyroidism: On levothyroxine 3. Anemia: GI and hematology following Plan Plan of Care Problems Medical Problems: (1) Leukocytosis Status: Acute (2) Normocytic anemia Status: Acute (3) Paroxysmal A-fib Status: Acute (4) Renal insufficiency Status: Acute (5) Thrombocytosis Status: Acute Comment Review of Relevant I have reviewed the following items sami (where applicable) has been applied. Labs Laboratory Tests Test 10/19/20 12:05 10/19/20 13:47 10/19/20 16:40 10/19/20 20:53 Glucose (Fingerstick) 131 mg/dL (70-99) 130 mg/dL (70-99) 120 mg/dL (70-99) Hemoglobin 7.6 g/dL (12.0-15.5) Test 10/20/20 08:16 Glucose (Fingerstick) 106 mg/dL (70-99) Microbiology 10/18/20 Urine Culture - Final, Complete Medications Current Medications Aspirin (Ecotrin) 81 mg [id number] PO Last administered on 10/20/20at 09:01; Start 10/19/20 at 14:00 Info (Non-Icu Electrolyte Protocol) 1 ea CONT PRN PRN MC PER PROTOCOL; Start 10/19/20 at 10:45 Metoprolol Tartrate (Lopressor) 25 mg BID PO Last administered on 10/20/20at 09:02; Start 10/19/20 at 14:00 Potassium Chloride (Klor-Con) 40 meq 1X ONCE PO Last administered on 10/19/20at 13:49; Start 10/19/20 at 12:30; Stop 10/19/20 at 12:31; Status DC Vitals/I & O Vital Sign - Last 24 Hours 10/19/20 10/19/20 10/19/20 10/19/20 11:00 13:52 15:00 19:33 Temp 98.5 98.1 98.5 98.1 Pulse 93 93 81 Resp 18 18 B/P (MAP) 138/70 (92) 138/70 133/65 (87) Pulse Ox 96 98 O2 Delivery Room Air Room Air Room Air 10/19/20 10/19/20 10/19/20 10/20/20 19:40 21:24 22:55 03:30 Temp 98.3 100.0 98.9 98.3 100.0 98.9 Pulse 82 94 74 77 Resp 17 18 18 B/P (MAP) 131/48 (75) 131/48 130/80 (97) 132/67 (88) Pulse Ox 96 97 98 O2 Delivery Room Air Room Air Room Air 10/20/20 10/20/20 10/20/20 07:00 08:00 09:02 Temp 98.9 98.9 Pulse 84 85 Resp 18 B/P (MAP) 112/65 (81) 112/65 Pulse Ox 93 O2 Delivery Room Air Room Air Intake and Output 10/19/20 10/19/20 10/20/20 15:00 23:00 07:00 Intake Total 320 ml 315 ml 480 ml Output Total 500 ml Balance 320 ml 315 ml -20 ml NATALYA SANCHEZ MD Oct 20, 2020 10:41
[2020-10-20 11:00] VITALS: BP 123/62
[2020-10-20] MEDS: ACETAMINOPHEN 325 MG TABLET. PO PRN ×2 (11:56→21:35)
[2020-10-20] MEDS: IV NORMAL SALINE 1000ML BAG 1,000 ML IV SCH (12:45)
--- NOTE | 2020-10-20 13:47 | PDOC ---
[employer] PROGRESS NOTE Date of Service DOS: DATE: 10/20/20 TIME: 13:45 Chief Complaint Chief Complaint Paroxysmal A-fib WITH RVR, NEW ONSET POA PROFOUND normocytic anemia mild pulmonary vascular congestion or interstitial infiltrate CXR 1-29 Normocytic anemia Thrombocytosis Leukocytosis Renal insufficiency breast cancer with bilateral mastectomy in remission since 2018 (no chem/rads, on prolia), Hyponatremia History of Present Illness History of Present Illness 131 21 No acute events overnight. No telemetry monitoring events. Hemoglobin stable at 7.6. Pending chemistries to follow-up for her low sodium, yesterday was 127. Patient's chart, labs, images were reviewed and discussed with RN 10/19/2020 No acute events overnight. Heart rate stable on telemetry monitoring. No RVR events. Status post 2 units PRBC p hemoglobin stable at 7.9. Sodium improved to 127. Still hypokalemic. Pending hematology and cardiology recommendations. Will reevaluate on Wednesday with GI. There are multiple lytic lesions throughout bone structures seen on CT abdomen pelvis. Discussed with the patient that after her mastectomy she did not want to go through chemoradiation because she did not want to have any pain or suffering with treatments. She was comfortable living her life with more quality. This was addressed to the nurse that this be related to Dr. Coyle when he does his evaluation. Patient's chart, labs, images were reviewed and discussed with RN 75-year-old female with a known history of previous anemia, had been followed recently by Hematology here. She had been taking iron, but was told that she only needed to have her hemoglobin checked every 6 months. She had been seeing Dr. Alarcon, has not switched over to the new product assurance engineer here. She has a known history of bilateral mastectomies since 2018 for breast cancer. She was seen in Dr. Brady's office today with hypotension and new onset atrial fibrillation. She denied any chest pain, denied weakness or dizziness. She complained of back cramping, took Tylenol without relief. When seen in the ER, where hemoglobin was only 6.7. She refused transfusion, but agreed IV infusion of iron . noted to have atrial fibrillation., rvr She was started on IV Cardizem and GI consult was placed. She was found to have leukocytosis and thrombocytosis. consult GI as well. Vitals/I&O Vitals/I&O: Vital Signs Date Time Temp Pulse Resp B/P (MAP) Pulse Ox O2 Delivery O2 Flow Rate FiO2 10/20/20 11:00 98.4 72 18 123/62 (82) 95 Room Air 98.4 I & O 10/19/20 10/19/20 10/20/20 15:00 23:00 07:00 Intake Total 320 ml 315 ml 480 ml Output Total 500 ml Balance 320 ml 315 ml -20 ml Physical Exam General: Alert, Oriented X3 Heart: Regular rate Abdomen: Soft, No tenderness Extremities: No edema Labs Labs: Laboratory Tests Test 10/19/20 13:47 10/19/20 16:40 10/19/20 20:53 10/20/20 08:16 Hemoglobin 7.6 g/dL (12.0-15.5) Glucose (Fingerstick) 130 mg/dL (70-99) 120 mg/dL (70-99) 106 mg/dL (70-99) Test 10/20/20 11:24 Glucose (Fingerstick) 114 mg/dL (70-99) Assessment and Plan Assessmemt and Plan Problems Medical Problems: (1) Leukocytosis Status: Acute (2) Normocytic anemia Status: Acute (3) Paroxysmal A-fib Status: Acute (4) Renal insufficiency Status: Acute (5) Thrombocytosis Status: Acute Comment Review of Relevant I have reviewed the following items sami (where applicable) has been applied. Medications: Current Medications Medications (Trade) Dose Ordered Sig/Mikey Route PRN Reason Start Time Stop Time Status Last Admin Dose Admin Aspirin (Ecotrin) 81 mg [id number] PO 10/19/20 14:00 10/20/20 09:01 Metoprolol Tartrate (Lopressor) 25 mg BID PO 10/19/20 14:00 10/20/20 09:02 Justifications for Admission Other Justification PARRIS COTTON MD Oct 20, 2020 13:47
[2020-10-20 14:42] LABS: CALCIUM 10.2 mg/dL (8.5-10.1); CREATININE 1.1 mg/dL (0.6-1.0); GFR 58.6; MAGNESIUM 1.1 mg/dL (1.8-2.4); POTASSIUM 3.9 mmol/L (3.5-5.1)
[2020-10-20 14:48] LABS: URIC ACID 6.1 mg/dL (2.6-6.0)
[2020-10-20 15:00] VITALS: BP 127/63
[2020-10-20] MEDS ORDERED: MAGNESIUM SULFATE 2GM 50 ML IV ONE (15:00)
[2020-10-20] MEDS ORDERED: MAGNESIUM OXIDE 400 MG TABLET PO ONE (17:00)
[2020-10-20 19:55] VITALS: BP 126/59
[2020-10-20 22:45] VITALS: BP 115/57
[2020-10-21] MEDS: IV NORMAL SALINE 1000ML BAG 1,000 ML IV SCH ×2 (01:10→15:25)
[2020-10-21 03:25] VITALS: BP 122/53
[2020-10-21] MEDS: LEVOTHYROXINE 100 MCG TABLET PO SCH (06:16)
[2020-10-21 07:00] VITALS: BP 136/65
--- NOTE | 2020-10-21 08:08 | PDOC2 ---
CONSULT Date of Consult Date of Consult DATE: 10/21/20 TIME: 07:58 Reason for Consult Reason for Consult: History of breast cancer. Now presenting with severe anemia and bone lytic lesions Referring Physician Referring Physician: Dr. Martin Identification/Chief Complaint Chief Complaint Atrial fibrillation Source Source: Chart review, Patient History of Present Illness Reason for Visit: Luz Elena Polanco is a 75-year-old -[place] female with history of right breast cancer, ER positive HER-2 negative status post bilateral mastectomy in 2018 and currently on adjuvant endocrine therapy with Arimidex. Patient currently follows with Dr. Brady, who is her primary care physician and Dr. Alarcon for hematology oncology care. She reports that she has been taking anastrozole since her mastectomy which showed node positive disease. She had not received radiation or adjuvant chemotherapy after her surgery after she declined it. She had continued on surveillance with Dr. Alarcon and states that her last visit was 3 months ago. Her labs over time have shown a gradually worsening anemia. She has previously discussed bone marrow biopsy with Dr. Alarcon but opted against it. She reports having had a bone marrow biopsy several years ago due to anemia. She states that she received a sternal bone marrow biopsy and this was e xquisitely painful. He is understandably very hesitant about having another one at this time. Patient reports new onset body aches over the last 2 to 3 weeks. She visited with her primary care doctor Dr. Brady for further evaluation. She was found to have atrial fibrillation and was asked to go to the emergency room for further management. She received CT scans which have shown multiple lytic lesions in the spine, concerning for breast cancer recurrence. She reports taking Prolia for osteoporosis per Dr. Alarcon's recommendations. Patient states that she would like her care discussed with her and her daughter. Current Problem List Problem List Problems Medical Problems: (1) Leukocytosis Status: Acute (2) Normocytic anemia Status: Acute (3) Paroxysmal A-fib Status: Acute (4) Renal insufficiency Status: Acute (5) Thrombocytosis Status: Acute Current Medications Current Medications Current Medications Diltiazem HCl (Cardizem Iv Push) 20 mg 1X ONCE IVP Last administered on 10/18/20at 12:16; Start 10/18/20 at 12:15; Stop 10/18/20 at 12:16; Status DC Sodium Chloride 1,000 ml @ 1,000 mls/hr 1X ONCE IV Last administered on 10/18/20at 12:16; Start 10/18/20 at 12:00; Stop 10/18/20 at 12:59; Status DC Ondansetron HCl (Zofran) 4 mg PRN Q8HRS PRN IV NAUSEA/VOMITING; Start 10/18/20 at 14:00; Stop 10/19/20 at 13:59; Status DC Fentanyl Citrate (Fentanyl 2ml Vial) 50 mcg PRN Q1HR PRN IV PAIN; Start 10/18/20 at 14:00; Stop 10/19/20 at 13:59; Status DC Acetaminophen (Tylenol) 650 mg PRN Q4HRS PRN PO FEVER > 100.3'F Last administered on 10/19/20at 08:58; Start 10/18/20 at 14:00; Stop 10/19/20 at 13:59; Status DC Sodium Chloride (Normal Saline Flush) 3 ml QSHIFT PRN IV AFTER MEDS AND BLOOD DRAWS; Start 10/18/20 at 14:45 Ondansetron HCl (Zofran) 4 mg PRN Q4HRS PRN IV NAUSEA/VOMITING; Start 10/18/20 at 14:45 Acetaminophen (Tylenol) 650 mg PRN Q4HRS PRN PO TEMP OVER 100.4F OR MILD PAIN Last administered on 10/20/20at 21:35; Start 10/18/20 at 14:45 Acetaminophen (Tylenol Supp) 650 mg PRN Q4HRS PRN ND TEMP OVER 100.4F OR MILD PAIN; Start 10/18/20 at 14:45 Sodium Monofluorophosphate (Fleet Adult) 133 ml PRN DAILY PRN ND CONSTIPATION; Start 10/18/20 at 14:45 Docusate Sodium (Colace) 100 mg PRN BID PRN PO HARD STOOLS; Start 10/18/20 at 14:45 Albuterol Sulfate (Ventolin Neb Soln) 2.5 mg PRN Q4HRS PRN NEB SHORTNESS OF BREATH; Start 10/18/20 at 14:45 Guaifenesin (Robitussin) 200 mg PRN Q4HRS PRN PO COUGH; Start 10/18/20 at 14:45 Lorazepam (Ativan) 0.5 mg PRN Q4HRS PRN PO ANXIETY / AGITATION; Start 10/18/20 at 14:45 Iron Sucrose 200 mg/Sodium Chloride 110 ml @ 55 mls/hr 1X ONCE IV Last administered on 10/18/20at 17:21; Start 10/18/20 at 14:45; Stop 10/18/20 at 16:44; Status DC Famotidine (Pepcid Vial) 20 mg DAILY IVP Last administered on 10/20/20at 09:02; Start 10/18/20 at 16:00 Anastrozole (Arimidex) 1 mg DAILY PO Last administered on 10/20/20at 09:08; Start 10/19/20 at 09:00 Levothyroxine Sodium (Synthroid) 100 mcg DAILY06 PO Last administered on 10/21/20at 06:16; Start 10/19/20 at 06:00 Magnesium Sulfate 3 gm/Dextrose 106 ml @ 35.333 mls/ hr 1X ONCE IV Last a dministered on 10/18/20at 21:24; Start 10/18/20 at 20:45; Stop 10/18/20 at 23:44; Status DC Sodium Chloride 1,000 ml @ 75 mls/hr [id number] IV ; Start 10/18/20 at 20:45 Info (Non-Icu Electrolyte Protocol) 1 ea CONT PRN PRN MC PER PROTOCOL; Start 10/19/20 at 10:45 Potassium Chloride (Klor-Con) 40 meq 1X ONCE PO Last administered on 10/19/20at 13:49; Start 10/19/20 at 12:30; Stop 10/19/20 at 12:31; Status DC Aspirin (Ecotrin) 81 mg [id number] PO Last administered on 10/20/20at 09:01; Start 10/19/20 at 14:00 Metoprolol Tartrate (Lopressor) 25 mg BID PO Last administered on 10/20/20at 21:35; Start 10/19/20 at 14:00 Magnesium Oxide (Magnesium Oxide) 400 mg 1X ONCE PO Last administered on 10/20/20at 17:30; Start 10/20/20 at 17:00; Stop 10/20/20 at 17:01; Status DC Magnesium Sulfate 50 ml @ 25 mls/hr 1X ONCE IV Last administered on 10/20/20at 15:35; Start 10/20/20 at 15:00; Stop 10/20/20 at 16:59; Status DC Active Scripts Active Reported Levothyroxine (Levothyroxine Sodium) 100 Mcg Capsule 100 Mcg PO DAILY Arimidex (Anastrozole) 1 Mg Tablet 1 Tab PO DAILY 30 Days Allergies Allergies: Coded Allergies: No Known Drug Allergies (Unverified , 07/08/17) ROS General: YES: Fatigue, Malaise PSYCHOLOGICAL ROS: No: Hallucinations, Hostility Eyes: No Eye Pain HEENT: No: Oral lesions, Sinus pain ALLERGY AND IMMUNOLOGY: No: Nasal Congestion, Post Nasal Drip Hematological and Lymphatic: No: Night Sweats ENDOCRINE: No: Malaise/lethargy Respiratory: YES: Shortness of breath Cardiovascular: No Edema Gastrointestinal: No Diarrhea Genitourinary: No Urgency, No Pain Musculoskeletal: Yes Muscle Pain, Yes Pain In: Neurological: No Confusion, No Headaches, No Impaired Coord/balance Skin: No Dry Skin (Back) Physical Exam General: Alert HEENT: Atraumatic Lungs: Clear to auscultation Heart: Other (Irregular rhythm) Abdomen: Normal bowel sounds, Soft Extremities: No cyanosis Skin: No rashes Neuro: Normal speech Psych/Mental Status: Mental status NL MUSCULOSKELETAL: No swelling Vitals VITALS Vital Signs Date Time Temp Pulse Resp B/P (MAP) Pulse Ox O2 Delivery O2 Flow Rate FiO2 10/21/20 03:25 98.0 61 18 122/53 (76) 97 Room Air 98.0 Labs Labs Laboratory Tests Test 10/19/20 12:05 10/19/20 13:47 10/19/20 16:40 10/19/20 20:53 Glucose (Fingerstick) 131 mg/dL (70-99) 130 mg/dL (70-99) 120 mg/dL (70-99) Hemoglobin 7.6 g/dL (12.0-15.5) Test 10/20/20 08:16 10/20/20 11:24 10/20/20 14:10 10/20/20 17:03 Glucose (Fingerstick) 106 mg/dL (70-99) 114 mg/dL (70-99) 210 mg/dL (70-99) Red Blood Count 2.79 x10^6/uL (3.50-5.70) Absolute Reticulocyte Count 0.091 x10^6/uL (0.020-0.120) Percent Reticulocyte Count 3.3 % (0.5-2.3) Immature Reticulocyte Fraction 0.52 (0.20-0.60) Sodium Level 127 mmol/L (136-145) Potassium Level 3.9 mmol/L (3.5-5.1) Chloride Level 91 mmol/L (98-107) Carbon Dioxide Level 28 mmol/L (21-32) Anion Gap 8 (6-14) Blood Urea Nitrogen 13 mg/dL (7-20) Creatinine 1.1 mg/dL (0.6-1.0) Estimated GFR (Cockcroft-Gault) 58.6 Glucose Level 181 mg/dL (70-99) Uric Acid 6.1 mg/dL (2.6-6.0) Calcium Level 10.2 mg/dL (8.5-10.1) Magnesium Level 1.1 mg/dL (1.8-2.4) Lactate Dehydrogenase 214 U/L (81-234) Test 10/20/20 21:10 Glucose (Fingerstick) 161 mg/dL (70-99) Laboratory Tests Test 10/20/20 08:16 10/20/20 11:24 10/20/20 14:10 10/20/20 17:03 Glucose (Fingerstick) 106 mg/dL (70-99) 114 mg/dL (70-99) 210 mg/dL (70-99) Red Blood Count 2.79 x10^6/uL (3.50-5.70) Absolute Reticulocyte Count 0.091 x10^6/uL (0.020-0.120) Percent Reticulocyte Count 3.3 % (0.5-2.3) Immature Reticulocyte Fraction 0.52 (0.20-0.60) Sodium Level 127 mmol/L (136-145) Potassium Level 3.9 mmol/L (3.5-5.1) Chloride Level 91 mmol/L (98-107) Carbon Dioxide Level 28 mmol/L (21-32) Anion Gap 8 (6-14) Blood Urea Nitrogen 13 mg/dL (7-20) Creatinine 1.1 mg/dL (0.6-1.0) Estimated GFR (Cockcroft-Gault) 58.6 Glucose Level 181 mg/dL (70-99) Uric Acid 6.1 mg/dL (2.6-6.0) Calcium Level 10.2 mg/dL (8.5-10.1) Magnesium Level 1.1 mg/dL (1.8-2.4) Lactate Dehydrogenase 214 U/L (81-234) Test 10/20/20 21:10 Glucose (Fingerstick) 161 mg/dL (70-99) Assessment/Plan Assessment/Plan Assessment: Normocytic anemia Thrombocytosis Back pain with lytic lesions noted on CT History of breast cancer in 2018, currently on adjuvant endocrine therapy with Arimidex Atrial fibrillation with rapid ventricular response Recommendations: -I reviewed results of iron studies. These are suggestive of anemia of chronic disease -We will check erythropoietin level, B12 -We will check JAK2 mutation for further evaluation of thrombocytosis -Given gradual decline in hemoglobin and thrombocytosis, would be concerned for myeloproliferative disorder. I recommended a bone marrow biopsy for further evaluation. I discussed the potential risks of bone marrow biopsy including discomfort at the biopsy site. Patient would like to discuss further with her family before she makes a decision. -Given back pain, lytic lesions on CT and history of breast cancer, I recommended biopsy of one of the lytic lesions on the bone to evaluate for metastatic recurrence of breast cancer -Given pancytopenia and lytic lesions, will check SPEP, free light chains to evaluate for multiple myeloma. She does not have chronic kidney disease -Management of atrial fibrillation per cardiology service -Other management per primary service Lucas Verma MD Medical Oncology/Hematology Ph: [phone] PIPPA VERMA MD Oct 21, 2020 08:08
[2020-10-21] MEDS: METOPROLOL TART IMMED RELEASE 25 MG TABLET. PO SCH ×2 (08:26→19:51)
[2020-10-21] MEDS: ASPIRIN ENTERIC COATED 81 MG TABLET.DR. PO SCH (08:26)
[2020-10-21] MEDS: FAMOTIDINE 20 MG/2 ML VIAL IVP SCH (08:27)
[2020-10-21] MEDS: ANASTROZOLE 1 MG TABLET PO SCH (08:30)
[2020-10-21 11:00] VITALS: BP 132/62
--- NOTE | 2020-10-21 11:02 | PDOC ---
Date of Service: DATE: 10/21/20 TIME: 10:56 Subjective: Subjective: No GI complaints, says a doctor said she should have a colonoscopy while she's here. Objective: Objective: No GI concerns per nurse, doesn't want to take Pepcid. Reviewed oncology note - pt considering bone marrow biopsy. Vital Signs: Vital Signs Date Time Temp Pulse Resp B/P (MAP) Pulse Ox O2 Delivery O2 Flow Rate FiO2 10/21/20 08:26 110 136/65 10/21/20 08:00 Room Air 10/21/20 07:00 98.8 18 96 98.8 Labs: Laboratory Tests Test 10/20/20 11:24 10/20/20 14:10 10/20/20 17:03 10/20/20 21:10 Glucose (Fingerstick) 114 mg/dL 210 mg/dL 161 mg/dL Red Blood Count 2.79 x10^6/uL Absolute Reticulocyte Count 0.091 x10^6/uL Percent Reticulocyte Count 3.3 % Immature Reticulocyte Fraction 0.52 Sodium Level 127 mmol/L Potassium Level 3.9 mmol/L Chloride Level 91 mmol/L Carbon Dioxide Level 28 mmol/L Anion Gap 8 Blood Urea Nitrogen 13 mg/dL Creatinine 1.1 mg/dL Estimated GFR (Cockcroft-Gault) 58.6 Glucose Level 181 mg/dL Uric Acid 6.1 mg/dL Calcium Level 10.2 mg/dL Magnesium Level 1.1 mg/dL Lactate Dehydrogenase 214 U/L Vitamin B12 Level > 2000 pg/mL Test 10/21/20 08:05 Glucose (Fingerstick) 133 mg/dL URINE CULTURE Final Final 20,000 CFU/ML Normal genitourinary doreen, not indicative of infection on 10/20/20 at 0903 Imaging: CT A/P 10/18 Impression: 1. Innumerable lytic lesions throughout the visualized osseous structures. This is consistent with metastatic cancer and could be metastatic breast cancer or metastatic lung cancer or multiple myeloma. 2. Linear opacities in the lung bases are likely discoid atelectasis or scar. 3. Mild to moderate wall thickening of the left colon just inflammatory or infectious colitis. There is no diverticulitis. There is no air in the wall to suggest ischemic colitis. 4. Fullness of the pancreatic head is suspicious for primary or metastatic cancer. Follow-up CT or MRI with contrast versus endoscopic ultrasound may be helpful. PE: GEN: NAD LUNGS: CTAB HEART: irregular ABD: NABS, S/ND/NT NEURO/PSYCH: A & O 3, maybe forgetful A/P: Lytic lesions, h/o breast cancer A Fib ACD -- No plans for inpatient colonoscopy. Continue per oncology. She requests to stop Pepcid. Other per Dr. George. Justicifation of Admission Dx: Justifications for Admission: Justification of Admission Dx: Yes LIAT GONZALEZ Oct 21, 2020 11:02
--- NOTE | 2020-10-21 11:14 | PDOC ---
[employer] PROGRESS NOTE Date of Service DOS: DATE: 10/21/20 TIME: 10:55 Chief Complaint Chief Complaint A/P: Normocytic anemia Thrombocytosis Back pain with lytic lesions noted on CT History of breast cancer in 2018, currently on adjuvant endocrine therapy with Arimidex Atrial fibrillation with rapid ventricular response PROFOUND normocytic anemia Mild pulmonary vascular congestion or interstitial infiltrate CXR 1-29 Normocytic anemia Thrombocytosis Leukocytosis Renal insufficiency breast cancer with bilateral mastectomy in remission since 2018 (no chem/rads, on prolia), Hyponatremia History of Present Illness History of Present Illness Ms Polanco is a 75-year-old female with a known history of previous anemia, Luz Elena Polanco is a 75-year-old -[place] female with history of right breast cancer, ER positive HER-2 negative status post bilateral mastectomy in 2018 and currently on adjuvant endocrine therapy with Arimidex. Patient currently follows with Dr. Brady, who is her primary care physician and Dr. Alarcon for hematology oncology care. She reports that she has been taking anastrozole since her mastectomy which showed node positive disease. She had not received radiation or adjuvant chemotherapy after her surgery after she declined it. She had continued on surveillance with Dr. Alarcon and states that her last visit was 3 months ago. Her labs over time have shown a gradually worsening anemia. She has previously discussed bone marrow biopsy with Dr. Alarcon but opted against it. She reports having had a bone marrow biopsy several years ago due to anemia. She states that she received a sternal bone marrow biopsy and this was exquisitely painful. He is understandably very hesitant about having another one at this time. Patient reports new onset body aches over the last 2 to 3 weeks. She visited with her primary care doctor Dr. Brady for further evaluation. She was found to have atrial fibrillation and was asked to go to the emergency room for further management. She received CT scans which have shown multiple lytic lesions in the spine, concerning for breast cancer recurrence. She reports taking Prolia for osteoporosis per Dr. Alarcon's recommendations. Patient states that she would like her care discussed with her and her daughter. She has a known history of bilateral mastectomies since 2018 for breast cancer. She was seen in Dr. Brady's office today with hypotension and new onset atrial fibrillation. She denied any chest pain, denied weakness or dizziness. She complained of back cramping, took Tylenol without relief. When seen in the ER, where hemoglobin was only 6.7. She refused transfusion, but agreed IV infusion of iron . noted to have atrial fibrillation., rvr She was started on IV Cardizem and GI consult was placed. She was found to have leukocytosis and thrombocytosis. consult GI as well. 10/20: No acute events overnight. No telemetry monitoring events. Hemoglobin stable at 7.6. Pending chemistries to follow-up for her low sodium, yesterday was 127. Patient's chart, labs, images were reviewed and discussed with RN 10/19: No acute events overnight. Heart rate stable on telemetry monitoring. No RVR events. Status post 2 units PRBC p hemoglobin stable at 7.9. Sodium improved to 127. Still hypokalemic. Feeling improved sodium still 127. She and her son are awaiting discussion with oncologist afternoon. Able to ambulate to the bathroom without assistance. Vitals/I&O Vitals/I&O: Vital Signs Date Time Temp Pulse Resp B/P (MAP) Pulse Ox O2 Delivery O2 Flow Rate FiO2 10/21/20 08:26 110 136/65 10/21/20 08:00 Room Air 10/21/20 07:00 98.8 18 96 98.8 I & O 10/20/20 10/20/20 10/21/20 15:00 23:00 07:00 Intake Total 400 ml 420 ml 620 ml Balance 400 ml 420 ml 620 ml Physical Exam General: Alert Heart: Other (Irregular rhythm) Abdomen: Normal bowel sounds, Soft Extremities: No cyanosis Skin: No rashes Labs Labs: Laboratory Tests Test 10/20/20 11:24 10/20/20 14:10 10/20/20 17:03 10/20/20 21:10 Glucose (Fingerstick) 114 mg/dL (70-99) 210 mg/dL (70-99) 161 mg/dL (70-99) Red Blood Count 2.79 x10^6/uL (3.50-5.70) Absolute Reticulocyte Count 0.091 x10^6/uL (0.020-0.120) Percent Reticulocyte Count 3.3 % (0.5-2.3) Immature Reticulocyte Fraction 0.52 (0.20-0.60) Sodium Level 127 mmol/L (136-145) Potassium Level 3.9 mmol/L (3.5-5.1) Chloride Level 91 mmol/L (98-107) Carbon Dioxide Level 28 mmol/L (21-32) Anion Gap 8 (6-14) Blood Urea Nitrogen 13 mg/dL (7-20) Creatinine 1.1 mg/dL (0.6-1.0) Estimated GFR (Cockcroft-Gault) 58.6 Glucose Level 181 mg/dL (70-99) Uric Acid 6.1 mg/dL (2.6-6.0) Calcium Level 10.2 mg/dL (8.5-10.1) Magnesium Level 1.1 mg/dL (1.8-2.4) Lactate Dehydrogenase 214 U/L (81-234) Vitamin B12 Level > 2000 pg/mL (247-911) Test 10/21/20 08:05 Glucose (Fingerstick) 133 mg/dL (70-99) Assessment and Plan Assessmemt and Plan Problems Medical Problems: (1) Leukocytosis Status: Acute (2) Normocytic anemia Status: Acute (3) Paroxysmal A-fib Status: Acute (4) Renal insufficiency Status: Acute (5) Thrombocytosis Status: Acute Comment Review of Relevant I have reviewed the following items sami (where applicable) has been applied. Medications: Current Medications Medications (Trade) Dose Ordered Sig/Mikey Route PRN Reason Start Time Stop Time Status Last Admin Dose Admin Magnesium Oxide (Magnesium Oxide) 400 mg 1X ONCE PO 10/20/20 17:00 10/20/20 17:01 DC 10/20/20 17:30 Magnesium Sulfate 50 ml @ 25 mls/hr 1X ONCE IV 10/20/20 15:00 10/20/20 16:59 DC 10/20/20 15:35 Justifications for Admission Other Justification AMILCAR SIMON MD Oct 21, 2020 11:14
--- NOTE | 2020-10-21 11:31 | PDOC ---
RALPH SÁNCHEZ AIR DISPATCHER 10/21/20 1131: CARDIO Progress Notes Date and Time Date of Service 10/21/20 Time of Evaluation 1130 Subjective Subjective: No Chest Pain, No shortness of breath Vitals Vitals Vital Signs Date Time Temp Pulse Resp B/P (MAP) Pulse Ox O2 Delivery O2 Flow Rate FiO2 10/21/20 08:26 110 136/65 10/21/20 08:00 Room Air 10/21/20 07:00 98.8 18 96 98.8 Weight Weight [ ] Input and Output Intake and Output Intake and Output 10/21/20 07:00 Intake Total 1440 ml Balance 1440 ml Intake Oral 1440 ml # Voids 5 # Bowel Movements 1 Laboratory Labs Laboratory Tests Test 10/20/20 14:10 10/20/20 17:03 10/20/20 21:10 10/21/20 08:05 Red Blood Count 2.79 x10^6/uL (3.50-5.70) Absolute Reticulocyte Count 0.091 x10^6/uL (0.020-0.120) Percent Reticulocyte Count 3.3 % (0.5-2.3) Immature Reticulocyte Fraction 0.52 (0.20-0.60) Sodium Level 127 mmol/L (136-145) Potassium Level 3.9 mmol/L (3.5-5.1) Chloride Level 91 mmol/L (98-107) Carbon Dioxide Level 28 mmol/L (21-32) Anion Gap 8 (6-14) Blood Urea Nitrogen 13 mg/dL (7-20) Creatinine 1.1 mg/dL (0.6-1.0) Estimated GFR (Cockcroft-Gault) 58.6 Glucose Level 181 mg/dL (70-99) Uric Acid 6.1 mg/dL (2.6-6.0) Calcium Level 10.2 mg/dL (8.5-10.1) Magnesium Level 1.1 mg/dL (1.8-2.4) Lactate Dehydrogenase 214 U/L (81-234) Vitamin B12 Level > 2000 pg/mL (247-911) Glucose (Fingerstick) 210 mg/dL (70-99) 161 mg/dL (70-99) 133 mg/dL (70-99) Microbiology Micro Microbiology 10/18/20 Urine Culture - Final, Complete Physical Exam HEENT: Neck Supple W Full Motion Chest: Symmetric LUNGS: Clear to Auscultation Heart: RRR Abdomen: Soft N/T Extremities: No Edema Neurology: alert, oriented, follow commands Assessment Assessment 1. Paroxysmal atrial fibrillation, presently back in sinus rhythm. TSH WNL 2. Hypothyroidism: On levothyroxine 3. Anemia, normocytic: s/p transfusion 4. Thrombocytosis 5. Back pain; CT noted with lytic lesions, concerns for metastatic disease with h/o breast CA. 6. Leukocytosis 7. Hyponatremia, hypomagnesemia; replaced Recommendations Continue metoprolol for rate control On ASA Monitor H and H PPI Outpatient echocardiogram to assess LV systolic function as scheduled Outpatient event monitor to guide therapy Follow hemonc, GI recs Supportive care Follow up in our office with Dr. Calzada as scheduled. Justicifation of Admission Dx: Justifications for Admission: Justification of Admission Dx: Yes NATALYA CALZADA MD 10/21/20 1428: CARDIO Progress Notes Assessment Assessment Patient seen and examined. Agree with ACCOUNTING MANAGER ASSISTANT CONTROLLER's assessment and plan. PAF, presently in sinus rhythm. Telemetry showed few brief episodes of atrial fibrillation. Plan for 2D echo and event monitor recording as an outpatient. Continue current medications including aspirin and metoprolol. RALPH SÁNCHEZ APRN Oct 21, 2020 11:31 NATALYA CALZADA MD Oct 21, 2020 14:28
--- NOTE | 2020-10-21 12:09 | NUR ---
SS following for discharge planning. SS reviewed pt chart and discussed with pt RN. Pt is from home with spouse and is currently on room air. PT/OT recommended home with assistance. Discharge plan is to home when medically ready. SS will continue to follow for discharge planning.
[2020-10-21 15:00] VITALS: BP 115/56
[2020-10-21] MEDS ORDERED: ZOLPIDEM 5 MG TABLET. PO PRN (17:45)
[2020-10-21 19:58] VITALS: BP 129/53
[2020-10-21 22:49] VITALS: BP 128/70
[2020-10-22 03:09] VITALS: BP 120/60
[2020-10-22] MEDS: IV NORMAL SALINE 1000ML BAG 1,000 ML IV SCH (04:45)
[2020-10-22] MEDS: LEVOTHYROXINE 100 MCG TABLET PO SCH (06:11)
[2020-10-22 07:00] VITALS: BP 128/58
[2020-10-22] MEDS: ASPIRIN ENTERIC COATED 81 MG TABLET.DR. PO SCH (07:49)
[2020-10-22] MEDS: METOPROLOL TART IMMED RELEASE 25 MG TABLET. PO SCH (07:50)
[2020-10-22] MEDS: ANASTROZOLE 1 MG TABLET PO SCH (07:52)
[2020-10-22 10:03] LABS: ALBUMIN 1.7 g/dL (3.4-5.0); ALBUMIN/GLOBULIN RATIO 0.4 (1.0-1.7); CALCIUM 9.8 mg/dL (8.5-10.1); CREATININE 0.8 mg/dL (0.6-1.0); GFR 84.6; POTASSIUM 3.7 mmol/L (3.5-5.1); TOTAL BILIRUBIN 0.7 mg/dL (0.2-1.0); TOTAL PROTEIN 6.5 g/dL (6.4-8.2)
[2020-10-22 10:46] VITALS: BP 140/80
--- NOTE | 2020-10-22 10:47 | PDOC ---
Date of Service: DATE: 10/22/20 TIME: 10:42 Subjective: Subjective: present - no GI concerns. Objective: Objective: D/w nurse - plans to DC today, not sure plans moving forward yet - primary had discussion w/ family yesterday, awaiting onc f/u. Vital Signs: Vital Signs Date Time Temp Pulse Resp B/P (MAP) Pulse Ox O2 Delivery O2 Flow Rate FiO2 10/22/20 08:00 Room Air 10/22/20 07:50 93 128/58 10/22/20 07:00 99.7 19 98 99.7 Labs: Laboratory Tests Test 10/21/20 11:46 10/21/20 17:08 10/21/20 20:27 10/22/20 07:16 Glucose (Fingerstick) 143 mg/dL 191 mg/dL 151 mg/dL 121 mg/dL Test 10/22/20 09:20 Sodium Level 126 mmol/L Potassium Level 3.7 mmol/L Chloride Level 92 mmol/L Carbon Dioxide Level 26 mmol/L Anion Gap 8 Blood Urea Nitrogen 13 mg/dL Creatinine 0.8 mg/dL Estimated GFR (Cockcroft-Gault) 84.6 BUN/Creatinine Ratio 16 Glucose Level 109 mg/dL Calcium Level 9.8 mg/dL Total Bilirubin 0.7 mg/dL Aspartate Amino Transf (AST/SGOT) 19 U/L Alanine Aminotransferase (ALT/SGPT) 7 U/L Alkaline Phosphatase 110 U/L Total Protein 6.5 g/dL Albumin 1.7 g/dL Albumin/Globulin Ratio 0.4 PE: GEN: NAD ABD: non-distended NEURO/PSYCH: sleeping - not awakened A/P: Lytic lesions, h/o breast cancer Paroxysmal A Fib ACD Dc per primary/oncology. Justicifation of Admission Dx: Justifications for Admission: Justification of Admission Dx: Yes LIAT GONZALEZ Oct 22, 2020 10:46
[2020-10-22] MEDS ORDERED: ASPI-886 PO (10:49)
[2020-10-22] MEDS ORDERED: METO25TA4 PO (10:49)
--- NOTE | 2020-10-22 10:55 | PDOC3 ---
Discharge Summary Visit Information Date of Admission: Oct 18, 2020 Date of Discharge: Oct 22, 2020 Admitting Diagnosis: Paroxsymal afib Final Diagnosis Problems Medical Problems: (1) Leukocytosis Status: Acute (2) Normocytic anemia Status: Acute (3) Paroxysmal A-fib Status: Acute (4) Renal insufficiency Status: Acute (5) Thrombocytosis Status: Acute Brief Hospital Course Allergies Allergies Coded Allergies Type Severity Reaction Last Updated Verified No Known Drug Allergies 07/08/17 No Vital Signs Vital Signs Date Time Temp Pulse Resp B/P (MAP) Pulse Ox O2 Delivery O2 Flow Rate FiO2 10/22/20 10:46 99.5 86 19 140/80 (100) 96 Room Air 99.5 Lab Results Laboratory Tests Test 10/20/20 11:24 10/20/20 14:10 10/20/20 17:03 10/20/20 21:10 Glucose (Fingerstick) 114 mg/dL (70-99) 210 mg/dL (70-99) 161 mg/dL (70-99) Red Blood Count 2.79 x10^6/uL (3.50-5.70) Absolute Reticulocyte Count 0.091 x10^6/uL (0.020-0.120) Percent Reticulocyte Count 3.3 % (0.5-2.3) Immature Reticulocyte Fraction 0.52 (0.20-0.60) Sodium Level 127 mmol/L (136-145) Potassium Level 3.9 mmol/L (3.5-5.1) Chloride Level 91 mmol/L (98-107) Carbon Dioxide Level 28 mmol/L (21-32) Anion Gap 8 (6-14) Blood Urea Nitrogen 13 mg/dL (7-20) Creatinine 1.1 mg/dL (0.6-1.0) Estimated GFR (Cockcroft-Gault) 58.6 Glucose Level 181 mg/dL (70-99) Uric Acid 6.1 mg/dL (2.6-6.0) Calcium Level 10.2 mg/dL (8.5-10.1) Magnesium Level 1.1 mg/dL (1.8-2.4) Lactate Dehydrogenase 214 U/L (81-234) Vitamin B12 Level > 2000 pg/mL (247-911) Test 10/21/20 08:05 10/21/20 11:46 10/21/20 17:08 10/21/20 20:27 Glucose (Fingerstick) 133 mg/dL (70-99) 143 mg/dL (70-99) 191 mg/dL (70-99) 151 mg/dL (70-99) Test 10/22/20 07:16 10/22/20 09:20 Glucose (Fingerstick) 121 mg/dL (70-99) Sodium Level 126 mmol/L (136-145) Potassium Level 3.7 mmol/L (3.5-5.1) Chloride Level 92 mmol/L (98-107) Carbon Dioxide Level 26 mmol/L (21-32) Anion Gap 8 (6-14) Blood Urea Nitrogen 13 mg/dL (7-20) Creatinine 0.8 mg/dL (0.6-1.0) Estimated GFR (Cockcroft-Gault) 84.6 BUN/Creatinine Ratio 16 (6-20) Glucose Level 109 mg/dL (70-99) Calcium Level 9.8 mg/dL (8.5-10.1) Total Bilirubin 0.7 mg/dL (0.2-1.0) Aspartate Amino Transf (AST/SGOT) 19 U/L (15-37) Alanine Aminotransferase (ALT/SGPT) 7 U/L (14-59) Alkaline Phosphatase 110 U/L (46-116) Total Protein 6.5 g/dL (6.4-8.2) Albumin 1.7 g/dL (3.4-5.0) Albumin/Globulin Ratio 0.4 (1.0-1.7) Laboratory Tests Test 10/21/20 11:46 10/21/20 17:08 10/21/20 20:27 10/22/20 07:16 Glucose (Fingerstick) 143 mg/dL (70-99) 191 mg/dL (70-99) 151 mg/dL (70-99) 121 mg/dL (70-99) Test 10/22/20 09:20 Sodium Level 126 mmol/L (136-145) Potassium Level 3.7 mmol/L (3.5-5.1) Chloride Level 92 mmol/L (98-107) Carbon Dioxide Level 26 mmol/L (21-32) Anion Gap 8 (6-14) Blood Urea Nitrogen 13 mg/dL (7-20) Creatinine 0.8 mg/dL (0.6-1.0) Estimated GFR (Cockcroft-Gault) 84.6 BUN/Creatinine Ratio 16 (6-20) Glucose Level 109 mg/dL (70-99) Calcium Level 9.8 mg/dL (8.5-10.1) Total Bilirubin 0.7 mg/dL (0.2-1.0) Aspartate Amino Transf (AST/SGOT) 19 U/L (15-37) Alanine Aminotransferase (ALT/SGPT) 7 U/L (14-59) Alkaline Phosphatase 110 U/L (46-116) Total Protein 6.5 g/dL (6.4-8.2) Albumin 1.7 g/dL (3.4-5.0) Albumin/Globulin Ratio 0.4 (1.0-1.7) Brief Hospital Course Ms Polanco is a 75-year-old female with a known history of previous anemia, Luz Elena Polanco is a 75-year-old -[place] Citizen female with history of right breast cancer, ER positive HER-2 negative status post bilateral mastectomy in 2018 and currently on adjuvant endocrine therapy with Arimidex. Patient currently follows with Dr. Brady, who is her primary care physician and Dr. Alarcon for hematology oncology care. She reports that she has been taking anastrozole since her mastectomy which showed node positive disease. She had not received radiation or adjuvant chemotherapy after her surgery after she declined it. She had continued on surveillance with Dr. Alarcon and states that her last visit was 3 months ago. Her labs over time have shown a gradually worsening anemia. She has previously discussed bone marrow biopsy with Dr. Alarcon but opted against it. She reports having had a bone marrow biopsy several years ago due to anemia. She states that she received a sternal bone marrow biopsy and this was e xquisitely painful. He is understandably very hesitant about having another one at this time. Patient reports new onset body aches over the last 2 to 3 weeks. She visited with her primary care doctor Dr. Brady for further evaluation. She was found to have atrial fibrillation and was asked to go to the emergency room for further management. She received CT scans which have shown multiple lytic lesions in the spine, concerning for breast cancer recurrence. She reports taking Prolia for osteoporosis per Dr. Alarcon's recommendations. Patient states that she would like her care discussed with her and her daughter. She has a known history of bilateral mastectomies since 2018 for breast cancer. She was seen in Dr. Brady's office today with hypotension and new onset atrial fibrillation. She denied any chest pain, denied weakness or dizziness. She complained of back cramping, took Tylenol without relief. When seen in the ER, where hemoglobin was only 6.7. She refused transfusion, but agreed IV infusion of iron . noted to have atrial fibrillation., rvr She was started on IV Cardizem and GI consult was placed. She was found to have leukocytosis and thrombocytosis. consult GI as well. 10/20: No acute events overnight. No telemetry monitoring events. Hemoglobin stable at 7.6. Pending chemistries to follow-up for her low sodium, yesterday was 127. Patient's chart, labs, images were reviewed and discussed with RN 10/19: No acute events overnight. Heart rate stable on telemetry monitoring. No RVR events. Status post 2 units PRBC p hemoglobin stable at 7.9. Sodium improved to 127. Still hypokalemic. 10/21: Feeling improved sodium still 127. She and her son are awaiting discussion with oncologist afternoon. Able to ambulate to the bathroom without assistance. Labs stable. She is already scheduled outpatient follow-up with Dr. Alarcon and would like to discuss with him whether to proceed with bone marrow biopsy outpatient. She has cardiology follow-up on December 05, 2020. Metoprolol prescription awaiting pickup at the pharmacy. She will wear an event monitor at home. Discussed with and daughter bedside. Consults: Cardiology, hematology/oncology Problem list: A/P: Normocytic anemia Thrombocytosis Back pain with lytic lesions noted on CT History of breast cancer in 2018, currently on adjuvant endocrine therapy with Arimidex Atrial fibrillation with rapid ventricular response PROFOUND normocytic anemia Mild pulmonary vascular congestion or interstitial infiltrate CXR 1- Normocytic anemia Thrombocytosis Leukocytosis Renal insufficiency breast cancer with bilateral mastectomy in remission since 2018 (no chem/rads, on prolia), Hyponatremia Plan: F/u JAK2 mutation for further evaluation of thrombocytosis -Given gradual decline in hemoglobin and thrombocytosis, would be concerned for myeloproliferative disorder. I recommended a bone marrow biopsy for further evaluation. I discussed the potential risks of bone marrow biopsy including discomfort at the biopsy site. Patient would like to discuss further with her family before she makes a decision. -Given back pain, lytic lesions on CT and history of breast cancer, I recom mended biopsy of one of the lytic lesions on the bone to evaluate for metastatic recurrence of breast cancer -Given pancytopenia and lytic lesions, will check SPEP, free light chains to evaluate for multiple myeloma. She does not have chronic kidney disease Greater than 30 minutes spent on d/c Discharge Information Condition at Discharge: Improved Follow Up: Weeks (1) Disposition/Orders: D/C to Home Scheduled Anastrozole (Arimidex) 1 Mg Tablet, 1 TAB PO DAILY for Breast caner for 30 Days, #30 Ref 0 (Reported) Entered as Reported by: DORYS MARTINEZ on 10/18/201800 Last Action: Continued on 10/18/201950 by SHAMIR ARIAS Aspirin (Aspirin Ec) 81 Mg Tablet.dr, 81 MG PO DAILYWBKFT for Afib for 90 Days, #90 Ref 1 Prescribed by: AMILCAR SIMON MD on 10/22/20 1049 Levothyroxine Sodium (Levothyroxine) 100 Mcg Capsule, 100 MCG PO DAILY for hypothroid , (Reported) Entered as Reported by: DORYS MARTINEZ on 10/18/201800 Last Action: Converted on 10/18/201950 by SHAMIR ARIAS Metoprolol Tartrate (Metoprolol Tartrate) 25 Mg Tablet, 25 MG PO BID for Atrial fibrillation for 90 Days, #180 Ref 1 Prescribed by: AMILCAR SIMON MD on 10/22/20 1049 Justicifation of Admission Dx: Justifications for Admission: Justification of Admission Dx: Yes AMILCAR SIMON MD Oct 22, 2020 10:55
[2020-10-22] MEDS ORDERED: MIRT-36 PO (13:00)
[2020-10-22 15:18] LABS: ALBUM 2.3 g/dL (2.9-4.4); ALPHA 1 0.5 g/dL (0.0-0.4); BETA 0.9 g/dL (0.7-1.3); GAMMA 1.9 g/dL (0.4-1.8); PROTEIN TOTAL 6.6 g/dL (6.0-8.5); SPEP AG RATIO 0.5 (0.7-1.7)
[2020-10-22 16:10] LABS: KAPPA FREE 90.8 mg/L (3.3-19.4); KAPPA LAMBDA RATIO 1.24 (0.26-1.65); LAMBDA FREE 73.4 mg/L (5.7-26.3)
== END 2020-10-22 11:50 | disposition home or self-care (01) | DRG 811 ==
LOC: ER 11:41 → ED HOLD 13:25 → 2 NORTH 16:44
PROVIDERS: ADMIT Family Medicine; ATTEND Family Medicine
PROC: 30233N1 Transfusion of Nonautologous Red Blood Cells into Peripheral Vein, Percutaneous Approach (ICD-10-PCS; principal; 2020-10-18)
DX: D50.9 Iron deficiency anemia, unspecified (principal); E43 Unspecified severe protein-calorie malnutrition; N17.9 Acute kidney failure, unspecified; E87.1 Hypo-osmolality and hyponatremia; I48.0 Paroxysmal atrial fibrillation; D72.810 Lymphocytopenia; D72.829 Elevated white blood cell count, unspecified; E03.9 Hypothyroidism, unspecified; E83.42 Hypomagnesemia; E86.1 Hypovolemia; E87.6 Hypokalemia; I10 Essential (primary) hypertension; M81.0 Age-related osteoporosis without current pathological fracture; Z79.811 Long term (current) use of aromatase inhibitors; Z85.3 Personal history of malignant neoplasm of breast; Z90.13 Acquired absence of bilateral breasts and nipples; Z90.710 Acquired absence of both cervix and uterus; D47.3 Essential (hemorrhagic) thrombocythemia; D53.9 Nutritional anemia, unspecified; Z68.22 Body mass index [BMI] 22.0-22.9, adult
CPT/HCPCS: 36415; 71045; 74176; 80048; 80053; 80307; 81001; 81270; 82607; 82668; 82728; 82962; 83520; 83540; 83550; 83615; 83690; 83735; 83880; 83930; 83935; 84100; 84165; 84443; 84484; 84550; 85007; 85018; 85025; 85027; 85045; 85379; 85384; 85610; 85730; 86300; 86850; 86900; 86901; 86920; 87086; 93005; 96361; 96374; 96375; 99285; J1756; J3475; J3490; J7030; J7060; P9016; G0378